=== PATIENT | female | born 1955 | race Caucasian/White ===

== ENCOUNTER 2018-01-27 12:15 | Inpatient (IN) | payer BC ==
[~2018-01-27] VITALS: Ht 149.9 cm; Wt 44.0 kg
[2018-01-27] VITALS (15 sets, daily range): BP systolic 126–153; BP diastolic 66–88
[2018-01-27] MEDS ORDERED: DEXAMETHASONE 4 MG/ML SDV (DECADRON) IV NR (12:30)
[2018-01-27 13:12] LABS: BASOPHILS % (AUTO) 0 % (0-10); EOSINOPHILS % (AUTO) 0 % (0-10); HEMATOCRIT 34 % (35-52); HEMOGLOBIN 11.8 G/DL (11.5-16.0); LYMPHOCYTES # (AUTO) 1.9 X 10^3 (1.0-4.0); LYMPHOCYTES % (AUTO) 16 % (12-44); MEAN CORPUSCULAR HEMOGLOBIN 31 PG (25-34); MEAN CORPUSCULAR HGB CONC 34 G/DL (32-36); MEAN CORPUSCULAR VOLUME 90 FL (80-99); MEAN PLATELET VOLUME 9.7 FL (7.4-10.4); MONOCYTES # (AUTO) 0.9 X 10^3 (0.0-1.0); MONOCYTES % (AUTO) 7 % (0-12); NEUTROPHILS % (AUTO) 76 % (42-75); PLATELET COUNT 465 10^3/uL (130-400); RED BLOOD COUNT 3.83 10^6/uL (4.35-5.85); WHITE BLOOD COUNT 11.7 10^3/uL (4.3-11.0)
[2018-01-27] MEDS ORDERED: CATHETER FLUSH 10 ML SYR IV PRN ×2 (13:15→13:45)
[2018-01-27 13:23] LABS: INR 1.1 (0.8-1.4); PROTHROMBIN TIME PATIENT 13.9 SEC (12.2-14.7)
[2018-01-27] MEDS: NS IV 1000 ML 1,000 ML IV SCH ×2 (13:26→23:10)
[2018-01-27] MEDS ORDERED: ONDANSETRON 4 MG/2 ML (SDV) Z0FRAN IVP PRN (13:30)
[2018-01-27 13:32] LABS: ALANINE AMINOTRANSFERASE 11 U/L (0-55); ALKALINE PHOSPHATASE 74 U/L (40-136); BILIRUBIN,TOTAL 0.5 MG/DL (0.1-1.0); BUN/CREATININE RATIO 12; CALCIUM 9.7 MG/DL (8.5-10.1); CARBON DIOXIDE 29 MMOL/L (21-32); CHLORIDE 88 MMOL/L (98-107); CREATININE SERUM 0.49 MG/DL (0.60-1.30); GFR ESTIMATED > 60; GLUCOSE 96 MG/DL (70-105); POTASSIUM 2.7 MMOL/L (3.6-5.0); SODIUM 133 MMOL/L (135-145); TOTAL PROTEIN 6.6 GM/DL (6.4-8.2)
--- NOTE | 2018-01-27 13:44 | Diagnostic Imaging Report ---
INDICATION: Shortness of breath. Time of exam 1:18 PM No prior studies are available for comparison. The heart size is normal. There is a mass in the right upper lobe measuring approximately 4 cm in size. There is some lucency along the upper portion of the mass suggestive of cavitation. No other abnormal parenchymal opacities are seen. No effusion or pneumothorax is seen. IMPRESSION: Cavitary mass right upper lobe. Further catheterization with CT of the chest could be performed. Dictated by: Dictated on workstation # [id number]
--- NOTE | 2018-01-27 13:45 | History & Physical-Hospitalist ---
History of Present Illness HPI/Chief Complaint Pt is a a 62yoCF who presented as a direct admission from Dr Benitez's office. She is very tired and offers very little history so all history is obtained from sister at bedside and Dr Benitez. She reportedly fell on Friday and was brought to [facility] and admitted for pneumonia. CT Chest on 01/24 showed a large cavitating mass concerning for lung cancer with large mediastinal lymphadenopathy. She had some left sided weakness as well. She was discharged home on 01/25 with follow up with Dr Benitez today. She had a CT Head and CT Abdomen and pelvis done today and was found to have large 4x5cm frontal mass with cerebral edema. She was admitted here for radiation oncology evaluation and pulmonology consultation. Her only complaint is that she has a headache. Her sister states that prior to 01/23 they were unaware she was so weak but they did not actively check on her. They had noticed that she has had almost no appetite and has been losing weight over the past few weeks. Her sister believes she has lost 20lbs. Source: family Exam Limitations: clinical condition Date Seen 01/27/18 Time Seen by a Provider: 13:29 Attending Physician Marley Fitzpatrick MD PCP Referring Physician Date of Admission Jan 27, 2018 at 12:15 pm Home Medications & Allergies Home Medications Reviewed patient Home Medication Reconciliation performed by pharmacy medication reconciliations gameroom technician and/or nursing. Patients Allergies have been reviewed. Allergies Allergies Coded Allergies No Allergy Information Available (Nxdvqxwkkl01/23/18) Past Mgrujtq-Iyqmsn-Mmzsmm Hx Past Med/Social Hx: Reviewed Nursing Past Med/Soc Hx Patient Social History Alcohol Use: Past History (quit 3-4 months ago) Recreational Drug Use: Yes Drug of Choice: THC Smoking Status: Never a Smoker Recent Foreign Travel: No Contact w/other who traveled: No Family History Reviewed Nursing Family Hx Cancer (Dad- lung cancer) Review of Systems ROS-Unable to Obtain: due to clinical status Constitutional: see HPI Physical Exam Physical Exam Vital Signs Vital Signs - First Documented 01/27/18 01/27/18 01/29/18 12:30 15:57 09:15 Temp 98.8 Pulse 76 Resp 11 B/P (MAP) 146/75 (98) Pulse Ox 96 O2 Delivery Room Air O2 Flow Rate 3.00 FiO2 21 Capillary Refill : Height, Weight, BMI Height: 4'11.00" Weight: 86lbs. 6.0oz. 39.540346os; 17.5 BMI Method: General Appearance: Chronically ill, Cachetic HEENT: PERRL/EOMI; No Scleral Icterus (L), No Scleral Icterus (R) Neck: Normal Inspection; No Thyromegaly Respiratory: Lungs Clear, No Accessory Muscle Use, No Respiratory Distress Cardiovascular: Regular Rate, Rhythm, No JVD, No Murmur Gastrointestinal: Normal Bowel Sounds, Non Tender, Soft Extremity: No Calf Tenderness, No Pedal Edema Neurologic/Psychiatric: Alert, Motor Weakness (left upper and lower extremity- 0/5 strength, states feels sensation but no withdrawal to painful stimuli), Other (answers some questions appropriately) Skin: Normal Color, Warm/Dry Results Results/Procedures Labs Laboratory Tests 01/29/18 03:30 01/30/18 05:15 Patient resulted labs reviewed. Imaging: Reviewed Imaging Films, Reviewed Imaging Report Assessment/Plan Admission Diagnosis Cerebral Edema from metastatic lesion Admission Status: Inpatient Order (span 2 midnights) Reason for Inpatient Admission: Need IV decadron, Radiation oncology evaluation, and furhter stabilization Diagnosis/Problems Diagnosis/Problems (1) Cerebral edema Status: Acute Assessment & Plan: Due to 4x5 cm mass Images from [place] to be uploaded here Rad/Onc consulted, appreciate recs Decadron started neuro checks (2) Lung mass Status: Acute Assessment & Plan: Lung mass on Ct with lymphadenopathy Reviewed films with Dr Gates and amenable to biopsy Will keep NPO after midnight INR normal Not on blood thinners (3) Left-sided weakness Assessment & Plan: Due to mass Decadron started MARLEY FITZPATRICK MD Jan 27, 2018 13:45
[2018-01-27] MEDS: APAP 325 MG/10.15 ML LIQ (TYLENOL) UDC PO PRN (14:08)
[2018-01-27] MEDS ORDERED: NAPR220T66 PO (14:11)
--- NOTE | 2018-01-27 15:20 | Pulmonary Consultation ---
History of Present Illness History of Present Illness Date of Consultation 01/27/18 15:17 Time Seen by Provider: 05:27 Date of Admission History of Present Illness 62yo patient dirctly admitted from [facility] after CT of chest found a cavitating mass and CT of head shows large 4x5 cm frontal mass. I am consulted for pulmonary management and bronchoscopy with EBUS. CT scan shows large cavitating mass and large MLA. Oncology has also been consulted. PT has had LUIS, decreased appetitie, progressive fatigue and lethargy. No prior cancer history. Allergies and Home Medications Allergies Coded Allergies: No Allergy Information Available (Unverified , 01/27/18) Home Medications Naproxen Sodium 220 Mg Tablet, 440 MG PO BID PRN for PAIN-MILD, (Reported) Past Srqeykb-Xfggwl-Dztvhf Hx Past Med/Social Hx: Reviewed Nursing Past Med/Soc Hx Patient Social History Alcohol Use: Past History (quit 3-4 months ago) Recreational Drug Use: Yes Drug of Choice: THC Smoking Status: Never a Smoker Recent Foreign Travel: No Contact w/Someone Who Travel: No Family Medical History Reviewed Nursing Family Hx Cancer (Dad- lung cancer) Review of Systems Time Seen by Provider: 13:16 Sepsis Event Evaluation Height, Weight, BMI Height: 4'11.00" Weight: 86lbs. 6.0oz. 39.800160fs; 17.5 BMI Method: Exam Exam Vital Signs Date Time Temp Pulse Resp B/P (MAP) Pulse Ox O2 Delivery O2 Flow Rate FiO2 01/27/18 12:45 74 18 137/70 (92) 95 Room Air 01/27/18 12:30 98.8 76 11 146/75 (98) 96 Room Air Height & Weight Height: 4'11.00" Weight: 86lbs. 6.0oz. 39.375839ue; 17.5 BMI Method: General Appearance: Chronically ill, Cachetic HEENT: PERRL/EOMI; No Scleral Icterus (L), No Scleral Icterus (R) Neck: Normal Inspection; No Thyromegaly Respiratory: Lungs Clear, No Accessory Muscle Use, No Respiratory Distress Cardiovascular: Regular Rate, Rhythm, No JVD, No Murmur Extremity: No Calf Tenderness, No Pedal Edema, Other (left sided heimpralysis ) Neurologic/Psychiatric: Alert, Motor Weakness (left upper and lower extremity- 0/5 strength, states feels sensation but no withdrawal to painful stimuli), Other (answers some questions appropriately) Skin: Normal Color, Warm/Dry Results Lab Laboratory Tests 01/27/18 12:53 Assessment/Plan Assessment/Plan large lung mass -Will do bronchoscopy with EBUS for tissue dx this morning Brain mass with left sided weakness -Decadron started Left sided hemiparalysis Hypokalemia -replace LUIS -Pain control AKILA ROCHE DO Jan 27, 2018 15:20
[2018-01-27] MEDS: inSUlin ASPART (NovoLOG) 1 UNIT/0.01 ML (CHARGE PER UNIT) SC SCH ×2 (16:30→20:01)
[2018-01-27] MEDS: DEXAMETHASONE 4 MG/ML SDV (DECADRON) IV SCH (19:07)
[2018-01-27] MEDS ORDERED: POTASSIUM CL 10MEQ/50ML IVPB 250 ML IV ONE (19:54)
[2018-01-27] MEDS ORDERED: POTASSIUM CL 10MEQ/50ML IVPB 50 ML IV ONE (20:00)
[2018-01-27] MEDS: POTASSIUM CL 10MEQ/50ML IVPB 50 ML IV SCH ×3 (21:14→23:10)
[2018-01-28] VITALS (22 sets, daily range): BP systolic 106–153; BP diastolic 64–106
[2018-01-28] MEDS: POTASSIUM CL 10MEQ/50ML IVPB 50 ML IV SCH (00:11)
[2018-01-28] MEDS: APAP 325 MG/10.15 ML LIQ (TYLENOL) UDC PO PRN (00:17)
[2018-01-28] MEDS: DEXAMETHASONE 4 MG/ML SDV (DECADRON) IV SCH ×4 (00:17→17:48)
[2018-01-28 03:54] LABS: BASOPHILS % (AUTO) 0 % (0-10); EOSINOPHILS % (AUTO) 0 % (0-10); HEMATOCRIT 34 % (35-52); HEMOGLOBIN 11.6 G/DL (11.5-16.0); LYMPHOCYTES # (AUTO) 1.5 X 10^3 (1.0-4.0); LYMPHOCYTES % (AUTO) 12 % (12-44); MEAN CORPUSCULAR HEMOGLOBIN 31 PG (25-34); MEAN CORPUSCULAR HGB CONC 34 G/DL (32-36); MEAN CORPUSCULAR VOLUME 89 FL (80-99); MEAN PLATELET VOLUME 10.1 FL (7.4-10.4); MONOCYTES # (AUTO) 0.2 X 10^3 (0.0-1.0); MONOCYTES % (AUTO) 1 % (0-12); NEUTROPHILS # (AUTO) 10.5 X 10^3 (1.8-7.8); NEUTROPHILS % (AUTO) 87 % (42-75); PLATELET COUNT 487 10^3/uL (130-400); RED BLOOD COUNT 3.78 10^6/uL (4.35-5.85); RED CELL DISTRIBUTION WIDTH 12.3 % (10.0-14.5); WHITE BLOOD COUNT 12.1 10^3/uL (4.3-11.0)
[2018-01-28 04:07] LABS: BUN/CREATININE RATIO 13; CALCIUM 9.2 MG/DL (8.5-10.1); CARBON DIOXIDE 24 MMOL/L (21-32); CHLORIDE 95 MMOL/L (98-107); CREATININE SERUM 0.48 MG/DL (0.60-1.30); GFR ESTIMATED > 60; GLUCOSE 132 MG/DL (70-105); MAGNESIUM 1.9 MG/DL (1.8-2.4); PHOSPHORUS 2.3 MG/DL (2.3-4.7); SODIUM 133 MMOL/L (135-145)
[2018-01-28] MEDS: inSUlin ASPART (NovoLOG) 1 UNIT/0.01 ML (CHARGE PER UNIT) SC SCH ×4 (04:16→20:48)
[2018-01-28] MEDS: morphine INJ 4 MG/ML 1 ML (VIAL/SYRINGE) IVP PRN ×2 (05:31→20:42)
--- NOTE | 2018-01-28 05:44 | Pulmonary Progress Note ---
Subjective Time Seen by a Provider: 06:16 Subjective/Events-last exam PT is lethargic. family at bedside. Sepsis Event Evaluation Height, Weight, BMI Height: 4'11.00" Weight: 87lbs. 9.0oz. 39.976631po; 17.5 BMI Method: Exam Exam Vital Signs Date Time Temp Pulse Resp B/P (MAP) Pulse Ox O2 Delivery O2 Flow Rate FiO2 01/28/18 04:00 98.5 01/28/18 04:00 94 Room Air 01/28/18 03:00 77 21 142/74 (96) 95 Room Air 01/28/18 02:00 80 15 140/80 (100) 95 Room Air 01/28/18 01:34 84 01/28/18 01:00 86 19 144/72 (96) 95 Room Air 01/28/18 00:00 90 13 129/78 (95) 94 Room Air 01/28/18 00:00 98.3 01/28/18 00:00 94 Room Air 01/27/18 23:00 94 14 141/78 (99) 94 Room Air 01/27/18 22:00 98 26 144/75 (98) 94 Room Air 01/27/18 21:00 86 12 138/81 (100) 94 Room Air 01/27/18 20:00 84 18 126/66 (86) 95 Room Air 01/27/18 20:00 94 Room Air 01/27/18 20:00 99.5 01/27/18 19:26 80 01/27/18 19:00 86 19 148/88 (108) 94 Room Air 01/27/18 18:00 77 11 141/79 (99) 94 Room Air 01/27/18 17:00 82 19 140/68 (92) 95 Room Air 01/27/18 16:30 94 Room Air 01/27/18 16:00 82 18 139/72 (94) 93 Room Air 01/27/18 15:57 74 95 21 01/27/18 15:00 83 16 145/85 (105) 93 Room Air 01/27/18 14:00 77 19 153/84 (107) 96 Room Air 01/27/18 13:15 75 17 148/80 (102) 97 Room Air 01/27/18 13:00 Room Air 01/27/18 13:00 71 13 138/78 (98) 95 Room Air 01/27/18 13:00 71 01/27/18 12:45 74 18 137/70 (92) 95 Room Air 01/27/18 12:33 78 01/27/18 12:30 98.8 76 11 146/75 (98) 96 Room Air I & O 01/28/18 07:00 Intake Total 1750 ml Output Total 1100 ml Balance 650 ml Height & Weight Height: 4'11.00" Weight: 87lbs. 9.0oz. 39.908668yx; 17.5 BMI Method: General Appearance: Chronically ill, Cachetic HEENT: PERRL/EOMI; No Scleral Icterus (L), No Scleral Icterus (R) Neck: Normal Inspection; No Thyromegaly Respiratory: Lungs Clear, No Accessory Muscle Use, No Respiratory Distress Cardiovascular: Regular Rate, Rhythm, No JVD, No Murmur Extremity: No Calf Tenderness, No Pedal Edema, Other (left sided heimpralysis ) Neurologic/Psychiatric: Alert, Motor Weakness (left upper and lower extremity- 0/5 strength, states feels sensation but no withdrawal to painful stimuli), Other (answers some questions appropriately) Skin: Normal Color, Warm/Dry Results Lab Laboratory Tests 01/27/18 12:53 01/28/18 02:55 Assessment/Plan Assessment/Plan large lung mass -Will do bronchoscopy with EBUS for tissue dx this morning Brain mass with left sided weakness -Decadron started Left sided hemiparalysis Hypokalemia -replace LUIS -Pain control AKILA ROCHE DO Jan 28, 2018 05:44
[2018-01-28] MEDS ORDERED: MAGNESIUM 1 GM/100 ML IVPB 100 ML IV SCH (06:00)
[2018-01-28] MEDS ORDERED: POTASSIUM CL 10MEQ/50ML IVPB 50 ML IV SCH (06:00)
[2018-01-28] MEDS ORDERED: KCL 20 MEQ TAB (K-DUR) PO SCH (06:00)
--- NOTE | 2018-01-28 06:32 | Progress Note-Pre Operative ---
Pre-Operative Progress Note H&P Reviewed The H&P was reviewed, patient examined and no changes noted. Date Seen by Provider: Jan 28, 2018 Time Seen by Provider: 06:32 Date H&P Reviewed: Jan 28, 2018 Time H&P Reviewed: 06:32 Pre-Operative Diagnosis: lung mass AKILA ROCHE DO Jan 28, 2018 06:32
[2018-01-28] MEDS ORDERED: proPOfol 200 MG/20 ML (DIPRIVAN) VIAL IV ONE (07:01)
[2018-01-28] MEDS ORDERED: MIDAZOLAM 2 MG/2 ML (VERSED) VIAL ONE (07:02)
[2018-01-28] MEDS ORDERED: DEXAMETHASONE 10 MG/ML (DECADRON) 1 ML VIAL ONE (07:02)
[2018-01-28] MEDS ORDERED: LIDOCAINE PF 2% 5 ML (XYLOCAINE) VIAL ONE (07:02)
[2018-01-28] MEDS ORDERED: fentaNYL INJECTION 100 MCG/2 ML AMP ONE (07:02)
[2018-01-28] MEDS ORDERED: ONDANSETRON 4 MG/2 ML (SDV) Z0FRAN ONE (07:03)
[2018-01-28] MEDS ORDERED: ROCURONIUM 10 MG/ML 5 ML SYRINGE IV ONE (07:03)
[2018-01-28] MEDS ORDERED: LIDOCAINE JELLY 2% 6 ML SYRINGE ONE (07:16)
[2018-01-28] MEDS ORDERED: LACTATED RINGERS 1,000 ML IV ONE ×2 (07:24→09:15)
[2018-01-28] MEDS ORDERED: PHENYLEPHRINE 100 MCG/ML 10 ML (ANESTHESIA) SYR ONE (07:35)
--- NOTE | 2018-01-28 08:06 | Diagnostic Imaging Report ---
INDICATION: Dyspnea. COMPARISON: 01/27/2018. FINDINGS: Cavitary lesion again noted in the right upper lung. This has not changed significantly in size or shape. Left lung remains well-aerated and clear. Heart is not enlarged. There is no pulmonary edema. No pneumothorax or pleural effusion. No bony lesion. IMPRESSION: Cavitary lesion again noted right upper lung without significant change since previous exam. With known intracranial mass this likely represents primary or metastatic lesion. Dictated by: Dictated on workstation # [id number]
[2018-01-28] MEDS ORDERED: GLYCOPYRROLATE 0.2 MG/ML (ROBINUL) 2 ML VIAL ONE (08:23)
[2018-01-28] MEDS ORDERED: NEOSTIGMINE 1 MG/ML 5 ML SYRINGE ONE (08:23)
--- NOTE | 2018-01-28 09:20 | Anesthesia-General Post-Op ---
General Patient Condition Mental Status/LOC: Same as Preop Cardiovascular: Satisfactory Nausea/Vomiting: Absent Respiratory: Satisfactory Pain: Controlled Complications: Absent Post Op Complications Complications None Follow Up Care/Instructions Patient Instructions None needed. Anesthesia/Patient Condition Patient Condition Patient was seen after the procedure and she was doing well, no complaints, stable vital signs, no apparent adverse anesthesia problems. STEPHENIE DAMICO DO Jan 28, 2018 09:19
[2018-01-28] MEDS ORDERED: morphine INJ 10 MG/ML 1ML (SYR OR VIAL) IVP ONE (09:30)
[2018-01-28] MEDS ORDERED: ONDANSETRON 4 MG/2 ML (SDV) Z0FRAN IVP PRN (09:30)
--- NOTE | 2018-01-28 09:37 | Diagnostic Imaging Report ---
INDICATION: Post bronchoscopy evaluation Portable chest 9:09 AM There is an infiltrate present in the right upper lobe. There is no pneumothorax. Left lung is clear. IMPRESSION: Increasing infiltrate right upper lobe likely due to alveolar hemorrhage following bronchoscopy. Dictated by: Dictated on workstation # [id number]
[2018-01-28] MEDS: NS IV 1000 ML 1,000 ML IV SCH ×2 (09:54→21:57)
--- NOTE | 2018-01-28 10:17 | Pulmonary Procedures ---
Pulmonary Procedures Date of Procedure Date of Service: Jan 28, 2018 Bronch Bronchoscopy with fluoroscopy, washing, BAL, transbronchial brushes of RUL. EBUS with transbronchial needle aspiration of stations 7, 10R, 4R, and 4L lymph nodes under US guidance. Preop DX: mediastinal lymphadenopathy, lung mass PostOP DX: same Complications: None Pt was sedated per anesthesia. Bronchoscopy was advanced through the ET tube and an anatomical undertaken down to the segmental bronchi bilaterally. No endobronchial lesions noted. Bronchoscopy with fluoroscopy, washing, BAL, transbronchial brushes of RUL. EBUS with transbronchial needle aspiration of stations 7, 10R, 4R, and 4L lymph nodes under US guidance. Pt tolerated procedure well. No complications noted. AKILA ROCHE DO Jan 28, 2018 10:17
--- NOTE | 2018-01-28 10:25 | Diagnostic Imaging Report ---
Indication: Fluoroscopy for bronchoscopy. Fluoroscopy was performed during bronchoscopy. 38 seconds of fluoroscopic time was utilized. Impression: Fluoroscopy during bronchoscopy. Dictated by: Dictated on workstation # [id number]
[2018-01-28 11:14] LABS: BODY FLUID APPEARENCE MOD CLDY; BODY FLUID COLOR COLORLESS; BODY FLUID SOURCE BRONCH LAVAGE; LYMPHOCYTES,BODY FLUID 9 %
[2018-01-28 11:15] LABS: BF OTHER CELLS 83 %
[2018-01-28] MEDS ORDERED: LIDOCAINE PF 2% 5 ML (XYLOCAINE) VIAL INJ ONE (12:27)
[2018-01-28] MEDS ORDERED: LIDOCAINE PF 1% 2 ML AMP IJ ONE (12:29)
--- NOTE | 2018-01-28 13:02 | CONSULTATION REPORT ---
DATE OF SERVICE: 01/28/2018 REFERRING PHYSICIAN: Elli Fitzpatrick MD PRIMARY PHYSICIAN: Romeo Benitez DO The patient is admitted to ICU bed 7. IMPRESSION: 1. A 62-year-old female admitted with mental status changes and left-sided weakness. 2. CT of the head with a large 5 x 4 cm mass in the right frontal region with significant edema as well as a smaller lesion in the left parietal lobe. 3. CT of the chest showing a cavitary lesion in the right upper lobe measuring 5 cm in diameter. 4. Status post bronchoscopy and biopsy earlier today. 5. No history of tobacco use, but the patient has smoked marijuana for 30 to 40 years on a regular basis. RECOMMENDATIONS: 1. Continue dexamethasone 4 mg IV or p.o. every 6 hours to reduce cerebral edema as you are doing. 2. Agree with radiation oncology consult for palliative radiation therapy. 3. I will await the pathology report from the bronchoscopy and biopsy and the definitive diagnosis before recommending systemic therapy. 4. The patient's daughter who has a legal and medical power of commercial real estate attorney is on her way from [place] and will be in [place] later today. BRIEF HISTORY: The patient is a 62-year-old female who apparently was doing well until she was found unresponsive and on the floor of her house last Friday. She was taken to [facility] and had CT scans done, which showed the right lung mass and as well as the brain mass. She was sent as a direct admit from her primary physician to [facility] for further management. Medical oncology consultation was obtained for further recommendations. The patient was unable to provide any history and it was obtained from her sister who lives in [place] and has been in close contact with the patient. According to the patient's sister, she was doing well and had several dental implants done approximately 2 weeks ago, she complained of pain following this as well as headaches. She had no other complaints. PAST MEDICAL HISTORY: Essentially unremarkable with no major medical problems. PAST SURGICAL HISTORY: Include a hysterectomy in the distant past. SOCIAL HISTORY: The patient is and has been living in [place] by herself since the last 10 to 12 years. 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 She has 3 children, 2 daughters and a son who live in [place], all of whom are adults. One of her daughters have legal and medical power of commercial real estate attorney for the patient. Her family gives a history that the patient has never smoked tobacco, but she used marijuana regularly since the last 30 to 40 years. She also has an extensive alcohol use since the last 10+ years, but quit 6 months ago. DETAILED FAMILY HISTORY: Not obtained today. PHYSICAL EXAMINATION: GENERAL: Today showed an elderly female, awake, but not answering questions other than occasional one word answers. She is not completely oriented. Does not appear in any acute distress. HEENT: Normocephalic, extraocular muscles intact, conjunctivae pink. Oral mucosa moist without lesions. NECK: Supple, with no JVD. No cervical, supraclavicular or axillary lymphadenopathy palpable. CHEST: Symmetrical. LUNGS: Slightly diminished breath sounds bilaterally without wheezes or rales. CARDIOVASCULAR: Regular rate and rhythm. No murmurs or gallops. ABDOMEN: Soft, nontender with no hepatosplenomegaly or other masses palpable. EXTREMITIES: Showed no edema. NEUROLOGIC: Full neurological examination could not be done as the patient would not follow instructions. She is moving all 4 extremities with a less control on the left side. LABORATORY DATA: I reviewed her lab work done today. CBC showed WBC 12.1, hemoglobin 11.6, platelet count 487,000 with neutrophil count 10.5 and lymphocyte count 1.5. BMP done today showed sodium level of 133 with the rest of the electrolytes relatively normal. BUN was 6 and creatinine 0.48 with GFR more than 60 mL per minute. CMP done yesterday showed normal liver function studies. Protime was 13.9 and INR 1.1 at the time of admission. I reviewed the outside images from [place] and the CT scan of the chest showed a 5 cm in diameter cavitating lesion in the right upper lobe with mediastinal lymphadenopathy. CT scan of the head showed a large 5 x 4 cm enhancing lesion in the right frontal lobe with significant surrounding edema. There is a smaller lesion in the left parietal area with no significant edema. The patient completed a bronchoscopy with washings, brushings and biopsy today with the pathology report pending. Thank you for allowing me to participate in this patient's care. I will follow the patient with you and make appropriate recommendations. Job ID: [id number] DocumentID: [id number] Dictated Date: 01/28/2018 11:34:17 Chemical Processing Technician Date: 01/28/2018 13:01:20 Dictated By: MD OLIVIA BURGER
--- NOTE | 2018-01-28 14:51 | Occ Therapy Progress Note ---
Therapy Progress Note Order received for OT eval and treat. Chart review completed. Spoke with RN regarding pt status and plan of care. RN states pt is not appropriate for therapy at this time. Will d/c OT and await further OT orders when appropriate. RENEE PATHAK OT Jan 28, 2018 14:51
--- NOTE | 2018-01-28 15:22 | Progress Note-Hospitalist ---
Subjective HPI/CC On Admission Date Seen by Provider: Jan 28, 2018 Time Seen by Provider: 15:18 Pt is a a 62yoCF who presented as a direct admission from Dr Benitez's office. She is very tired and offers very little history so all history is obtained from sister at bedside and Dr Benitez. She reportedly fell on Friday and was brought to [facility] and admitted for pneumonia. CT Chest on 01/24 showed a large cavitating mass concerning for lung cancer with large mediastinal lymphadenopathy. She had some left sided weakness as well. She was discharged home on 01/25 with follow up with Dr Benitez today. She had a CT Head and CT Abdomen and pelvis done today and was found to have large 4x5cm frontal mass with cerebral edema. She was admitted here for radiation oncology evaluation and pulmonology consultation. Her only complaint is that she has a headache. Her sister states that prior to 01/23 they were unaware she was so weak but they did not actively check on her. They had noticed that she has had almost no appetite and has been losing weight over the past few weeks. Her sister believes she has lost 20lbs. Subjective/Events-last exam Pt remains somnolent. She did open her eyes but did not answer any questions during my exam. Underwent bronch this AM. Objective Exam Vital Signs Vital Signs Date Time Temp Pulse Resp B/P (MAP) Pulse Ox O2 Delivery O2 Flow Rate FiO2 01/28/18 12:00 94 Room Air 01/28/18 11:00 67 11 130/73 (92) 01/28/18 04:00 98.5 01/27/18 15:57 21 Capillary Refill : General Appearance: Chronically ill, Cachetic Respiratory: Lungs Clear, No Respiratory Distress Cardiovascular: Regular Rate, Rhythm, No Murmur Gastrointestinal: Normal Bowel Sounds, Non Tender, Soft Neurologic/Psychiatric: Alert, Motor Weakness Results/Procedures Lab Laboratory Tests 01/28/18 02:55 Patient resulted labs reviewed. Imaging: Reviewed Imaging Films, Reviewed Imaging Report Assessment/Plan Assessment and Plan Assess & Plan/Chief Complaint Cerebral Edema, brain mets Diagnosis/Problems Diagnosis/Problems (1) Cerebral edema Status: Acute Assessment & Plan: Due to 4x5 cm mass Images uploaded for Pulm and rad/onc review Rad/Onc consulted, appreciate recs Cont Decadron neuro checks (2) Lung mass Status: Acute Assessment & Plan: Lung mass on CT with lymphadenopathy Underwent EBUS this AM Oncology consulted, appreciate recs (3) Left-sided weakness Assessment & Plan: Due to mass Decadron started Clinical Quality Measures DVT/VTE Risk/Contraindication: Risk Factor Score Per Nursin RFS Level Per Nursing on Admit: 4+=Very High MARLEY BURT MD Jan 28, 2018 3:22 pm
[2018-01-29] VITALS (9 sets, daily range): BP systolic 139–157; BP diastolic 68–96
[2018-01-29] MEDS: DEXAMETHASONE 4 MG/ML SDV (DECADRON) IV SCH ×4 (00:18→17:13)
[2018-01-29 03:57] LABS: BUN/CREATININE RATIO 13; CALCIUM 8.6 MG/DL (8.5-10.1); CARBON DIOXIDE 23 MMOL/L (21-32); CHLORIDE 96 MMOL/L (98-107); CREATININE SERUM 0.46 MG/DL (0.60-1.30); GFR ESTIMATED > 60; GLUCOSE 132 MG/DL (70-105); MAGNESIUM 1.6 MG/DL (1.8-2.4); PHOSPHORUS 2.4 MG/DL (2.3-4.7); POTASSIUM 3.4 MMOL/L (3.6-5.0); SODIUM 132 MMOL/L (135-145)
[2018-01-29] MEDS: NS IV 1000 ML 1,000 ML IV SCH ×3 (05:59→17:13)
[2018-01-29] MEDS: inSUlin ASPART (NovoLOG) 1 UNIT/0.01 ML (CHARGE PER UNIT) SC SCH ×4 (06:01→21:37)
--- NOTE | 2018-01-29 06:22 | Pulmonary Progress Note ---
Subjective Time Seen by a Provider: 08:05 Subjective/Events-last exam No complications noted. Sepsis Event Evaluation Height, Weight, BMI Height: 4'11.00" Weight: 87lbs. 9.0oz. 39.679598gw; 17.5 BMI Method: Exam Exam Vital Signs Date Time Temp Pulse Resp B/P (MAP) Pulse Ox O2 Delivery O2 Flow Rate FiO2 01/29/18 05:00 76 11 153/72 (99) 93 Room Air 01/29/18 04:00 73 18 154/70 (98) 94 Room Air 01/29/18 04:00 98.9 01/29/18 04:00 94 Room Air 01/29/18 03:00 80 16 146/71 (96) 92 Room Air 01/29/18 02:00 71 19 94 Room Air 01/29/18 01:00 60 01/29/18 01:00 60 10 146/68 (94) 92 Room Air 01/29/18 00:00 94 Room Air 01/29/18 00:00 75 14 157/96 (116) 92 Room Air 01/29/18 00:00 98.7 01/28/18 23:00 75 9 153/86 (108) 93 Room Air 01/28/18 22:00 75 15 149/79 (102) 91 Room Air 01/28/18 21:00 75 22 123/64 (83) 90 Room Air 01/28/18 20:00 94 Room Air 01/28/18 20:00 98.3 01/28/18 20:00 93 16 134/74 (94) 93 Room Air 01/28/18 19:00 93 9 134/72 (92) 91 Room Air 01/28/18 19:00 98 01/28/18 18:00 93 12 132/106 (115) 94 Room Air 01/28/18 17:39 98.4 89 18 122/80 (94) 95 Room Air 01/28/18 16:00 94 Room Air 01/28/18 16:00 95 18 114/76 (89) 95 Room Air 01/28/18 15:00 77 15 132/78 (96) 95 Room Air 01/28/18 13:00 68 11 137/73 (94) 95 Room Air 01/28/18 13:00 72 01/28/18 12:00 94 Room Air 01/28/18 12:00 65 11 145/75 (98) 93 Room Air 01/28/18 11:00 67 11 130/73 (92) 93 Room Air 01/28/18 10:16 94 Room Air 01/28/18 10:00 72 13 145/81 (102) 95 Room Air 01/28/18 08:00 94 Room Air 01/28/18 07:41 16 01/28/18 07:00 74 01/28/18 07:00 71 13 142/69 (93) 95 Room Air 01/28/18 06:20 96 Room Air I & O 01/29/18 07:00 Intake Total 1720 ml Output Total 2525 ml Balance -805 ml Height & Weight Height: 4'11.00" Weight: 87lbs. 9.0oz. 39.469992bc; 17.5 BMI Method: General Appearance: Chronically ill, Cachetic HEENT: PERRL/EOMI; No Scleral Icterus (L), No Scleral Icterus (R) Neck: Normal Inspection; No Thyromegaly Respiratory: Lungs Clear, No Accessory Muscle Use, No Respiratory Distress Cardiovascular: Regular Rate, Rhythm, No JVD, No Murmur Extremity: No Calf Tenderness, No Pedal Edema, Other (left sided heimpralysis ) Neurologic/Psychiatric: Alert, Motor Weakness (left upper and lower extremity- 0/5 strength, states feels sensation but no withdrawal to painful stimuli), Other (answers some questions appropriately) Skin: Normal Color, Warm/Dry Results Lab Laboratory Tests 01/27/18 12:53 01/28/18 02:55 01/29/18 03:30 Assessment/Plan Assessment/Plan large lung mass s/p bronchoscopy with EBUS -Oncology and radiation oncology consulted Brain mass with left sided weakness -Decadron Left sided hemiparalysis Hypokalemia -replace LUIS -Pain control AKILA ROCHE DO Jan 29, 2018 06:22
[2018-01-29 06:32] LABS: BASOPHILS % (AUTO) 0 % (0-10); EOSINOPHILS % (AUTO) 0 % (0-10); HEMATOCRIT 33 % (35-52); HEMOGLOBIN 11.2 G/DL (11.5-16.0); LYMPHOCYTES # (AUTO) 1.6 X 10^3 (1.0-4.0); LYMPHOCYTES % (AUTO) 8 % (12-44); MEAN CORPUSCULAR HEMOGLOBIN 31 PG (25-34); MEAN CORPUSCULAR HGB CONC 34 G/DL (32-36); MEAN CORPUSCULAR VOLUME 90 FL (80-99); MEAN PLATELET VOLUME 9.7 FL (7.4-10.4); MONOCYTES # (AUTO) 0.6 X 10^3 (0.0-1.0); MONOCYTES % (AUTO) 3 % (0-12); NEUTROPHILS # (AUTO) 18.1 X 10^3 (1.8-7.8); NEUTROPHILS % (AUTO) 89 % (42-75); PLATELET COUNT 436 10^3/uL (130-400); RED BLOOD COUNT 3.63 10^6/uL (4.35-5.85); RED CELL DISTRIBUTION WIDTH 12.2 % (10.0-14.5); WHITE BLOOD COUNT 20.4 10^3/uL (4.3-11.0)
[2018-01-29 06:33] LABS: LYMPHOCYTES % (MANUAL) 11 %; MONOCYTES % (MANUAL) 2 %; NEUTROPHILS % (MANUAL) 87 %
--- NOTE | 2018-01-29 07:22 | Diagnostic Imaging Report ---
INDICATION: Shortness of air. COMPARISON: 01/28/2018. FINDINGS: Single frontal radiographic view of the chest was obtained and demonstrates significant interval improved aeration when compared to one day prior. There is, however, persistent mass type opacity within the right mid and upper lung field measuring 4.7 x 3.3 cm. Note is made of central lucency. Findings may be on the basis of interval resolution of atelectasis or hemorrhage in the right upper lobe. Left lung remains relatively clear. No large effusion or pneumothorax is seen on either side. Cardiac silhouette and pulmonary vasculature are within normal limits. Bony structures show no acute abnormalities. IMPRESSION: 1. Significant improved aeration of the right upper lobe. 2. Persistent right-sided cavitary mass. Dictated by: Dictated on workstation # [id number]
--- NOTE | 2018-01-29 07:35 | Progress Note-Hospitalist ---
Subjective HPI/CC On Admission Date Seen by Provider: Jan 29, 2018 Time Seen by Provider: 07:32 Pt is a a 62yoCF who presented as a direct admission from Dr Benitez's office. She is very tired and offers very little history so all history is obtained from sister at bedside and Dr Benitez. She reportedly fell on Friday and was brought to [facility] and admitted for pneumonia. CT Chest on 01/24 showed a large cavitating mass concerning for lung cancer with large mediastinal lymphadenopathy. She had some left sided weakness as well. She was discharged home on 01/25 with follow up with Dr Benitez today. She had a CT Head and CT Abdomen and pelvis done today and was found to have large 4x5cm frontal mass with cerebral edema. She was admitted here for radiation oncology evaluation and pulmonology consultation. Her only complaint is that she has a headache. Her sister states that prior to 01/23 they were unaware she was so weak but they did not actively check on her. They had noticed that she has had almost no appetite and has been losing weight over the past few weeks. Her sister believes she has lost 20lbs. Subjective/Events-last exam Pt reports feeling better. Slightly more alert. Son at bedside request darker room to help with sleep. Discussed with RN and was able to move left arm and leg overnight. Objective Exam Vital Signs Vital Signs Date Time Temp Pulse Resp B/P (MAP) Pulse Ox O2 Delivery O2 Flow Rate FiO2 01/30/18 08:00 96 Room Air 01/30/18 07:00 74 01/30/18 04:52 97.9 20 141/63 (89) 01/29/18 20:17 3.00 01/27/18 15:57 21 Capillary Refill : General Appearance: No Apparent Distress, WD/WN Respiratory: Lungs Clear, No Respiratory Distress Cardiovascular: Regular Rate, Rhythm, No Murmur Gastrointestinal: Normal Bowel Sounds, Non Tender, Soft Extremity: No Calf Tenderness, No Pedal Edema, Other (left leg 0/5 strength, left arm 1/5) Neurologic/Psychiatric: Alert, Oriented x3 Results/Procedures Lab Laboratory Tests 01/30/18 05:15 Patient resulted labs reviewed. Imaging: Reviewed Imaging Films, Reviewed Imaging Report Assessment/Plan Assessment and Plan Assess & Plan/Chief Complaint Cerebral Edema, brain mets Diagnosis/Problems Diagnosis/Problems (1) Cerebral edema Status: Acute Assessment & Plan: Due to 4x5 cm mass Images uploaded for Pulm and rad/onc review Rad/Onc consulted, appreciate recs Cont Decadron Transfer to floor (2) Lung mass Status: Acute Assessment & Plan: Lung mass on CT with lymphadenopathy Underwent EBUS10/24 AM Await path Oncology consulted, appreciate recs Discussed with Dr Dos Santos (3) Left-sided weakness Assessment & Plan: Due to mass Continue decadron Slightly improved overnight Clinical Quality Measures DVT/VTE Risk/Contraindication: Risk Factor Score Per Nursin RFS Level Per Nursing on Admit: 4+=Very High MARLEY BURT MD Jan 29, 2018 07:35
[2018-01-29] MEDS: MAGNESIUM 1 GM/100 ML IVPB 100 ML IV SCH ×3 (09:15→14:20)
[2018-01-29] MEDS: POTASSIUM CL 10MEQ/50ML IVPB 50 ML IV SCH ×6 (09:15→14:20)
[2018-01-29] MEDS: morphine INJ 4 MG/ML 1 ML (VIAL/SYRINGE) IVP PRN (20:59)
[2018-01-30] VITALS: BP 148/68
[2018-01-30] MEDS: DEXAMETHASONE 4 MG/ML SDV (DECADRON) IV SCH ×4 (00:48→17:46)
[2018-01-30] MEDS: NS IV 1000 ML 1,000 ML IV SCH ×3 (03:10→22:52)
[2018-01-30 04:52] VITALS: BP 141/63
[2018-01-30] MEDS: inSUlin ASPART (NovoLOG) 1 UNIT/0.01 ML (CHARGE PER UNIT) SC SCH ×4 (05:35→20:48)
[2018-01-30 05:46] LABS: BASOPHILS % (AUTO) 0 % (0-10); EOSINOPHILS % (AUTO) 0 % (0-10); HEMATOCRIT 35 % (35-52); HEMOGLOBIN 11.8 G/DL (11.5-16.0); LYMPHOCYTES # (AUTO) 1.7 X 10^3 (1.0-4.0); LYMPHOCYTES % (AUTO) 11 % (12-44); MEAN CORPUSCULAR HEMOGLOBIN 31 PG (25-34); MEAN CORPUSCULAR HGB CONC 34 G/DL (32-36); MEAN CORPUSCULAR VOLUME 91 FL (80-99); MEAN PLATELET VOLUME 10.2 FL (7.4-10.4); MONOCYTES # (AUTO) 0.6 X 10^3 (0.0-1.0); MONOCYTES % (AUTO) 4 % (0-12); NEUTROPHILS # (AUTO) 14.1 X 10^3 (1.8-7.8); NEUTROPHILS % (AUTO) 86 % (42-75); PLATELET COUNT 468 10^3/uL (130-400); RED BLOOD COUNT 3.81 10^6/uL (4.35-5.85); RED CELL DISTRIBUTION WIDTH 12.7 % (10.0-14.5); WHITE BLOOD COUNT 16.5 10^3/uL (4.3-11.0)
[2018-01-30 06:00] LABS: BUN/CREATININE RATIO 13; CALCIUM 9.2 MG/DL (8.5-10.1); CARBON DIOXIDE 23 MMOL/L (21-32); CHLORIDE 97 MMOL/L (98-107); CREATININE SERUM 0.46 MG/DL (0.60-1.30); GFR ESTIMATED > 60; GLUCOSE 133 MG/DL (70-105); POTASSIUM 3.7 MMOL/L (3.6-5.0); SODIUM 132 MMOL/L (135-145)
[2018-01-30 08:00] VITALS: BP 139/74
--- NOTE | 2018-01-30 08:58 | Pulmonary Progress Note ---
Subjective Time Seen by a Provider: 10:16 Subjective/Events-last exam Family at bedside. No complications noted. Sepsis Event Evaluation Height, Weight, BMI Height: 4'11.00" Weight: 91lbs. 7.0oz. 41.539009fh; 17.5 BMI Method: Exam Exam Vital Signs Date Time Temp Pulse Resp B/P (MAP) Pulse Ox O2 Delivery O2 Flow Rate FiO2 01/30/18 08:00 96 Room Air 01/30/18 04:53 73 01/30/18 04:52 97.9 77 20 141/63 (89) 93 Room Air 01/30/18 04:00 94 Room Air 01/30/18 00:08 94 Room Air 01/30/18 00:00 98.4 72 16 148/68 (94) 93 Room Air 01/29/18 20:17 Nasal Cannula 3.00 01/29/18 20:00 98.4 73 16 142/76 (98) 96 Room Air 01/29/18 20:00 94 Room Air 01/29/18 16:00 94 Room Air 01/29/18 16:00 69 13 150/68 (95) 96 Room Air 01/29/18 13:00 86 01/29/18 12:00 69 13 150/68 (95) 96 Room Air 01/29/18 12:00 94 Room Air 01/29/18 09:15 Nasal Cannula 3.00 I & O 01/30/18 06:59 Intake Total 1540 ml Output Total 4375 ml Balance -2835 ml Height & Weight Height: 4'11.00" Weight: 91lbs. 7.0oz. 41.790567aj; 17.5 BMI Method: General Appearance: No Apparent Distress, WD/WN HEENT: PERRL/EOMI; No Scleral Icterus (L), No Scleral Icterus (R) Neck: Normal Inspection; No Thyromegaly Respiratory: Lungs Clear, No Respiratory Distress Cardiovascular: Regular Rate, Rhythm, No Murmur Extremity: No Calf Tenderness, No Pedal Edema, Other (left leg 0/5 strength, left arm 1/5) Neurologic/Psychiatric: Alert, Oriented x3 Skin: Normal Color, Warm/Dry Results Lab Laboratory Tests 01/29/18 03:30 01/30/18 05:15 Assessment/Plan Assessment/Plan arge lung mass s/p bronchoscopy with EBUS -Oncology and radiation oncology consulted Brain mass with left sided weakness -Decadron Left sided hemiparalysis LUIS -Pain control Cytology is still pending. AKILA ROCHE DO Jan 30, 2018 08:58
--- NOTE | 2018-01-30 09:49 | Progress Note-Hospitalist ---
Subjective HPI/CC On Admission Date Seen by Provider: Jan 30, 2018 Time Seen by Provider: 09:44 Pt is a a 62yoCF who presented as a direct admission from Dr Benitez's office. She is very tired and offers very little history so all history is obtained from sister at bedside and Dr Benitez. She reportedly fell on Friday and was brought to [facility] and admitted for pneumonia. CT Chest on 01/24 showed a large cavitating mass concerning for lung cancer with large mediastinal lymphadenopathy. She had some left sided weakness as well. She was discharged home on 01/25 with follow up with Dr Benitez today. She had a CT Head and CT Abdomen and pelvis done today and was found to have large 4x5cm frontal mass with cerebral edema. She was admitted here for radiation oncology evaluation and pulmonology consultation. Her only complaint is that she has a headache. Her sister states that prior to 01/23 they were unaware she was so weak but they did not actively check on her. They had noticed that she has had almost no appetite and has been losing weight over the past few weeks. Her sister believes she has lost 20lbs. Subjective/Events-last exam Pt reports doing better. More talkative today. Family at bedside. No complaints or concerns. Objective Exam Vital Signs Vital Signs Date Time Temp Pulse Resp B/P (MAP) Pulse Ox O2 Delivery O2 Flow Rate FiO2 01/30/18 08:00 96 Room Air 01/30/18 07:00 74 01/30/18 04:52 97.9 20 141/63 (89) 01/29/18 20:17 3.00 01/27/18 15:57 21 Capillary Refill : General Appearance: No Apparent Distress, Cachetic Respiratory: Lungs Clear, No Respiratory Distress Cardiovascular: Regular Rate, Rhythm, No Murmur Gastrointestinal: Normal Bowel Sounds, Non Tender, Soft Extremity: Other (flinches fingers of left hand, less so than yesterday) Neurologic/Psychiatric: Alert, Oriented x3 Results/Procedures Lab Laboratory Tests 01/30/18 05:15 Patient resulted labs reviewed. Imaging: Reviewed Imaging Films, Reviewed Imaging Report Assessment/Plan Assessment and Plan Assess & Plan/Chief Complaint Cerebral Edema, brain mets Diagnosis/Problems Diagnosis/Problems (1) Cerebral edema Status: Acute Assessment & Plan: Due to 4x5 cm mass Images uploaded for Pulm and rad/onc review Rad/Onc consulted, appreciate recs First round of radiation today, resume Friday Cont Decadron (2) Lung mass Status: Acute Assessment & Plan: Lung mass on CT with lymphadenopathy Underwent EBUS10/24 AM Oncology consulted, appreciate recs Discussed with Dr Dos Santos- juan tijerina (3) Left-sided weakness Assessment & Plan: Due to mass Continue decadron Remains similar to yesterday Clinical Quality Measures DVT/VTE Risk/Contraindication: Risk Factor Score Per Nursin RFS Level Per Nursing on Admit: 4+=Very High MARLEY BURT MD Jan 30, 2018 09:49
[2018-01-30] MEDS: morphine INJ 4 MG/ML 1 ML (VIAL/SYRINGE) IVP PRN ×2 (11:39→22:49)
[2018-01-30 12:00] VITALS: BP 126/70
[2018-01-30 16:31] VITALS: BP 145/72
[2018-01-30 19:12] VITALS: BP 138/68
[2018-01-31] VITALS (7 sets, daily range): BP systolic 126–151; BP diastolic 55–94
[2018-01-31] MEDS: DEXAMETHASONE 4 MG/ML SDV (DECADRON) IV SCH ×4 (00:18→18:09)
[2018-01-31 05:25] LABS: BASOPHILS % (AUTO) 0 % (0-10); EOSINOPHILS % (AUTO) 0 % (0-10); HEMATOCRIT 35 % (35-52); HEMOGLOBIN 12.1 G/DL (11.5-16.0); LYMPHOCYTES # (AUTO) 1.8 X 10^3 (1.0-4.0); LYMPHOCYTES % (AUTO) 11 % (12-44); MEAN CORPUSCULAR HEMOGLOBIN 31 PG (25-34); MEAN CORPUSCULAR HGB CONC 34 G/DL (32-36); MEAN CORPUSCULAR VOLUME 91 FL (80-99); MEAN PLATELET VOLUME 10.5 FL (7.4-10.4); MONOCYTES # (AUTO) 0.8 X 10^3 (0.0-1.0); MONOCYTES % (AUTO) 5 % (0-12); NEUTROPHILS # (AUTO) 13.6 X 10^3 (1.8-7.8); NEUTROPHILS % (AUTO) 84 % (42-75); PLATELET COUNT 420 10^3/uL (130-400); RED BLOOD COUNT 3.89 10^6/uL (4.35-5.85); RED CELL DISTRIBUTION WIDTH 12.5 % (10.0-14.5); WHITE BLOOD COUNT 16.1 10^3/uL (4.3-11.0)
[2018-01-31 06:04] LABS: BUN/CREATININE RATIO 16; CALCIUM 9.1 MG/DL (8.5-10.1); CARBON DIOXIDE 23 MMOL/L (21-32); CHLORIDE 96 MMOL/L (98-107); CREATININE SERUM 0.44 MG/DL (0.60-1.30); GFR ESTIMATED > 60; GLUCOSE 121 MG/DL (70-105); POTASSIUM 3.8 MMOL/L (3.6-5.0); SODIUM 130 MMOL/L (135-145)
[2018-01-31] MEDS: inSUlin ASPART (NovoLOG) 1 UNIT/0.01 ML (CHARGE PER UNIT) SC SCH ×3 (06:35→16:00)
[2018-01-31] MEDS: NS IV 1000 ML 1,000 ML IV SCH ×2 (08:51→18:09)
--- NOTE | 2018-01-31 09:07 | Progress Note-Hospitalist ---
Subjective HPI/CC On Admission Date Seen by Provider: Jan 31, 2018 Time Seen by Provider: 09:04 Pt is a a 62yoCF who presented as a direct admission from Dr Benitez's office. She is very tired and offers very little history so all history is obtained from sister at bedside and Dr Benitez. She reportedly fell on Friday and was brought to [facility] and admitted for pneumonia. CT Chest on 01/24 showed a large cavitating mass concerning for lung cancer with large mediastinal lymphadenopathy. She had some left sided weakness as well. She was discharged home on 01/25 with follow up with Dr Benitez today. She had a CT Head and CT Abdomen and pelvis done today and was found to have large 4x5cm frontal mass with cerebral edema. She was admitted here for radiation oncology evaluation and pulmonology consultation. Her only complaint is that she has a headache. Her sister states that prior to 01/23 they were unaware she was so weak but they did not actively check on her. They had noticed that she has had almost no appetite and has been losing weight over the past few weeks. Her sister believes she has lost 20lbs. Subjective/Events-last exam Pt reports doing well. Far more talkative today again. No complaints. States slept well. Son at bedside, no concerns or questions. Objective Exam Vital Signs Vital Signs Date Time Temp Pulse Resp B/P (MAP) Pulse Ox O2 Delivery O2 Flow Rate FiO2 01/31/18 08:00 97.2 63 12 145/65 (91) 92 Room Air 01/30/18 16:06 21 01/29/18 20:17 3.00 Capillary Refill : General Appearance: No Apparent Distress, WD/WN Respiratory: Lungs Clear, No Respiratory Distress Cardiovascular: Regular Rate, Rhythm, No Murmur Neurologic/Psychiatric: Alert, Oriented x3, Motor Weakness (left upper and lower extremity- paralysis) Results/Procedures Lab Laboratory Tests 01/31/18 04:47 Patient resulted labs reviewed. Imaging: Reviewed Imaging Films, Reviewed Imaging Report Assessment/Plan Assessment and Plan Assess & Plan/Chief Complaint Cerebral Edema, brain mets Diagnosis/Problems Diagnosis/Problems (1) Cerebral edema Status: Acute Assessment & Plan: Due to 4x5 cm mass Images uploaded for Pulm and rad/onc review Rad/Onc consulted, appreciate recs Underwent radiation yesterday, resume Friday Cont Maradron (2) Lung mass Status: Acute Assessment & Plan: Lung mass on CT with lymphadenopathy Underwent EBUS10/24 AM Oncology consulted, appreciate recs Prelim path on verbal report is adenocarcinoma of the lung- poorly differentiated (3) Left-sided weakness Assessment & Plan: Due to mass Continue decadron Remains similar to yesterday regarding motor function Clinical Quality Measures DVT/VTE Risk/Contraindication: Risk Factor Score Per Nursin RFS Level Per Nursing on Admit: 4+=Very High MARLEY BURT MD Jan 31, 2018 9:07 am
[2018-01-31] MEDS: ENOXAPARIN 40 MG/0.4 ML (LOVENOX) SYR SQ SCH (12:02)
[2018-01-31] MEDS: morphine INJ 4 MG/ML 1 ML (VIAL/SYRINGE) IVP PRN ×2 (12:03→21:47)
--- NOTE | 2018-01-31 13:37 | Consultation ---
History of Present Illness History of Present Illness Patient Consulted On(abhinav/time) 01/28/18 1145 Date Seen by Provider: Jan 28, 2018 Time Seen by Provider: 11:45 Reason for Visit: Radiation Oncology Consult History of Present Illness -62 y/o white female who was taken to [facility] after being found unresponsive on the floor of her house 01/23/18. -CXR noted a small area of pneumonia in the RUL. -She was admitted for further evaluation. -01/24/18 CXR (1) changes from emphysema and/or COPD (2) area of increased density in the RUL which is fairly solid appearing -01/24/18 CT Chest w/: (1) noted a cavitating mass in the RUL posteriorly measuring 3.2 cm (2) extensive mediastinal and hilar lymphadenopathy (3) no bone lesions 01/25/18 The patient was discharged home with PCP follow up. 01/27/[address] Benitez. Patient reporting some left sided weakness. Further scans ordered. -01/27/18 CT brain w/wo: (1) Two large masses in the brain which are enhancing masses consistent with metastatic disease from lung carcinoma. One mass in the right frontal lobe measuring 4 x 5 cm with significant vasogenic edema with midline shift from right to left. Second mass is in the left parietal lobe measuring 11 mm with edema. 01/27/18 CT Abd/Pelvis w: (1) Three small low dense lesions in the liver, too small to characterize by CT. (2) Remainder of study normal. 01/27/18 Patient was a direct admit to [facility] from Dr. Benitez's office. Dr. Elli Fitzpatrick assumed care. -initiated on decadron -rad onc consult for brain mets -Dr. Gates for biopsy evaluation (1) Dr. Gates performed bronchoscopy with biopsy (2) Inpt consult with medical oncologist, Dr. Dos Santos -will await pathology from bronch before recommending systemic treatment -concure with rad onc referral A radiation oncology consult was made for evaluation and consideration of palliative brain radiotherapy; thus, my visit with the patient today. Allergies and Home Medications Allergies Coded Allergies: No Allergy Information Available (Unverified , 01/27/18) Home Medications Naproxen Sodium 220 Mg Tablet, 440 MG PO BID PRN for PAIN-MILD, (Reported) Patient Home Medication List Home Medication List Reviewed: Yes Past Wcvkawn-Byefho-Wdukcd Hx Past Med/Social Hx: Reviewed Nursing Past Med/Soc Hx Patient Social History Alcohol Use: Past History (quit 3-4 months ago) Recreational Drug Use: Yes Drug of Choice: THC Smoking Status: Never a Smoker (never smoked cigarettes, but she has smoked marijuana for 30-40 years on a regular basis.) Recent Foreign Travel: No Contact w/Someone Who Travel: No Recent Infectious Disease Expo: No Immunizations Up To Date Date of Influenza Vaccine: Jan 25, 2018 Seasonal Allergies Seasonal Allergies: No Past Medical History Surgeries: Yes Hysterectomy Respiratory: Yes (New DX of Lung Mass) Pneumonia Currently Using CPAP: No Currently Using BIPAP: No Cardiac: No Neurological: Yes (New DX of Frontal Lobe mass) Hx : 3 Hx Para: 3 Female Reproductive Disorders: Endometriosis Sexually Transmitted Disease: No Genitourinary: No Gastrointestinal: No (poor appiete and weight loss) Musculoskeletal: Yes (New weakness and inability to walk, left sided) Endocrine: No HEENT: No Cancer: Yes (New DX lung and frontal lobe masses) Psychosocial: No Integumentary: No Blood Disorders: No Adverse Reaction/Blood Tranf: No Family Medical History Reviewed Nursing Family Hx Cancer (Dad- lung cancer) Review of Systems-General ROS-Unable to Obtain: Unable to Obtain - Physical Exam-General Problems Physical Exam Vital Signs Vital Signs - First Documented 01/27/18 01/27/18 01/29/18 12:30 15:57 09:15 Temp 98.8 Pulse 76 Resp 11 B/P (MAP) 146/75 (98) Pulse Ox 96 O2 Delivery Room Air O2 Flow Rate 3.00 FiO2 21 Capillary Refill : General Appearance: WD/WN, no apparent distress Respiratory: no respiratory distress Neurologic/Psychiatric: other (she would arouse to verbal request but was very drowsy from bronchoscopy sedation) Skin: warm/dry Assessment/Plan Assessment/Plan Admission Diagnosis/Plan Lung mass - most likely lung cancer Brain lesions - consistent with metastatic disease from lung cancer I offered the patient/sister a two week course of palliative whole brain irradiation. We would attempt to deliver 30 Gy /10 fxs utilizing standard radiotherapy treatment technique. The acute toxicities, intermediate complications, hoped for benefit and logistics were reviewed. The patient is in agreement to proceed. She is sedated right now. Her daughter from [place], who is her MDPA, is on her way. We will obtain the appropriate consent. A treatment planning ct simulation will be performed later today. I explained we will plan her treatment and be ready to begin once the pathology from her bronchoscopy is back. Reason for Inpatient Admission: mental status changes and left-sided weakness Clinical Quality Measures DVT/VTE Risk/Contraindication: Risk Factor Score Per Nursin RFS Level Per Nursing on Admit: 4+=Very High BREANN GILMORE MD Jan 31, 2018 13:37
[2018-02-01] MEDS: DEXAMETHASONE 4 MG/ML SDV (DECADRON) IV SCH ×4 (01:03→18:25)
[2018-02-01] MEDS: inSUlin ASPART (NovoLOG) 1 UNIT/0.01 ML (CHARGE PER UNIT) SC SCH ×5 (01:09→21:31)
[2018-02-01 04:20] VITALS: BP 124/70
[2018-02-01] MEDS: NS IV 1000 ML 1,000 ML IV SCH ×2 (04:29→14:39)
[2018-02-01 08:00] VITALS: BP 143/67
[2018-02-01] MEDS: ENOXAPARIN 40 MG/0.4 ML (LOVENOX) SYR SQ SCH (09:36)
--- NOTE | 2018-02-01 10:01 | Progress Note-Hospitalist ---
Subjective HPI/CC On Admission Date Seen by Provider: Feb 01, 2018 Time Seen by Provider: 09:59 Pt is a a 62yoCF who presented as a direct admission from Dr Benitez's office. She is very tired and offers very little history so all history is obtained from sister at bedside and Dr Benitez. She reportedly fell on Friday and was brought to [facility] and admitted for pneumonia. CT Chest on 01/24 showed a large cavitating mass concerning for lung cancer with large mediastinal lymphadenopathy. She had some left sided weakness as well. She was discharged home on 01/25 with follow up with Dr Benitez today. She had a CT Head and CT Abdomen and pelvis done today and was found to have large 4x5cm frontal mass with cerebral edema. She was admitted here for radiation oncology evaluation and pulmonology consultation. Her only complaint is that she has a headache. Her sister states that prior to 01/23 they were unaware she was so weak but they did not actively check on her. They had noticed that she has had almost no appetite and has been losing weight over the past few weeks. Her sister believes she has lost 20lbs. Subjective/Events-last exam Laying in bed watching Tv, Resting comfortably. No complaints. Feeling better today. Objective Exam Vital Signs Vital Signs Date Time Temp Pulse Resp B/P (MAP) Pulse Ox O2 Delivery O2 Flow Rate FiO2 02/01/18 08:30 92 Room Air 02/01/18 08:00 97.5 62 18 143/67 (92) 01/31/18 21:00 0.00 01/30/18 16:06 21 Capillary Refill : Less Than 3 Seconds General Appearance: No Apparent Distress, Cachetic Respiratory: Lungs Clear, No Respiratory Distress Cardiovascular: Regular Rate, Rhythm, No Murmur Gastrointestinal: Normal Bowel Sounds, Soft Extremity: Other (paralysis in left upper and lower extremity remains) Neurologic/Psychiatric: Alert, Oriented x3 Results/Procedures Lab Patient resulted labs reviewed. Imaging: Reviewed Imaging Films, Reviewed Imaging Report Assessment/Plan Assessment and Plan Assess & Plan/Chief Complaint Cerebral Edema, brain mets Diagnosis/Problems Diagnosis/Problems (1) Cerebral edema Status: Acute Assessment & Plan: Due to 4x5 cm mass Images uploaded for Pulm and rad/onc review Rad/Onc consulted, appreciate recs Underwent radiation yesterday, resume tomorrow Cont Decadron (2) Lung mass Status: Acute Assessment & Plan: Lung mass on CT with lymphadenopathy Underwent EBUS10/24 AM Oncology consulted, appreciate recs Prelim path on verbal report is adenocarcinoma of the lung- poorly differentiated (3) Left-sided weakness Assessment & Plan: Due to mass Continue decadron Remains similar to yesterday regarding motor function (4) Discharge planning issues Assessment & Plan: Previously lived at home by herself Sisters to help during day Daughter would like to arrange night time help as well Social work consulted, appreciate recs Clinical Quality Measures DVT/VTE Risk/Contraindication: Risk Factor Score Per Nursin RFS Level Per Nursing on Admit: 4+=Very High MARLEY BURT MD Feb 01, 2018 10:01 am
[2018-02-01 12:00] VITALS: BP 144/65
[2018-02-01] MEDS ORDERED: LORazepam INJ 2 MG/ML (ATIVAN) VIAL ONE (15:03)
[2018-02-01] MEDS ORDERED: LORazepam INJ 2 MG/ML (ATIVAN) VIAL IVP ONE (15:10)
[2018-02-01] MEDS ORDERED: LORazepam INJ 2 MG/ML (ATIVAN) VIAL IVP PRN (15:15)
[2018-02-01] MEDS ORDERED: LEVETIRACETAM INJECTION 1,000 MG in NS (IVPB) 100 ML IV SCH ×2 (15:40→21:00)
[2018-02-01 15:55] VITALS: BP 136/64
[2018-02-01] MEDS: LEVETIRACETAM INJECTION 1,000 MG in NS (IVPB) 100 ML IV SCH ×2 (16:04→21:31)
[2018-02-01 20:45] VITALS: BP 152/79
[2018-02-02 00:08] VITALS: BP 140/73
[2018-02-02] MEDS: DEXAMETHASONE 4 MG/ML SDV (DECADRON) IV SCH ×4 (00:26→18:12)
[2018-02-02] MEDS: NS IV 1000 ML 1,000 ML IV SCH ×3 (01:35→20:43)
[2018-02-02 04:04] VITALS: BP 137/69
[2018-02-02] MEDS: inSUlin ASPART (NovoLOG) 1 UNIT/0.01 ML (CHARGE PER UNIT) SC SCH ×4 (05:28→20:34)
[2018-02-02 08:00] VITALS: BP 134/70
[2018-02-02] MEDS: LEVETIRACETAM INJECTION 1,000 MG in NS (IVPB) 100 ML IV SCH ×2 (08:34→20:43)
[2018-02-02] MEDS: ENOXAPARIN 40 MG/0.4 ML (LOVENOX) SYR SQ SCH (08:34)
[2018-02-02] MEDS: morphine INJ 4 MG/ML 1 ML (VIAL/SYRINGE) IVP PRN ×2 (08:38→16:44)
[2018-02-02 12:00] VITALS: BP 128/66
[2018-02-02 16:00] VITALS: BP 117/64
--- NOTE | 2018-02-02 17:20 | Progress Note-Hospitalist ---
Progress Note Progress Notes/Assess & Plan Date Seen 02/02/18 Time Seen by Provider: 17:17 Assessment & Plan The patient is a 62-year-old white female referred here from [facility] after she was found to have a mass in the upper portion of the right lower lobe and a significant mass with edema in the right frontal area of the brain. She has had seizures as a consequence. She is currently very somnolent as she received some morphine after returning from her radiation treatment. Her son is in the room and we discussed her situation and prospects. He is quite aware that this is a rather imminently terminal circumstance. Physical exam: The patient is deeply asleep and does not respond to voice or pinching. Lungs show a shallow regular respiration. CV is regular. The patient is noted to be very thin. Impression: Carcinoma of the right lower lobe. 2.metastatic tumor to the right frontal area. Prognosis: Poor MAURI JOHNSON MD Feb 02, 2018 17:20
[2018-02-02 19:20] VITALS: BP 122/58
[2018-02-03 00:27] VITALS: BP 128/59
[2018-02-03] MEDS: DEXAMETHASONE 4 MG/ML SDV (DECADRON) IV SCH ×5 (00:35→23:21)
[2018-02-03 04:04] VITALS: BP 134/59
[2018-02-03] MEDS: inSUlin ASPART (NovoLOG) 1 UNIT/0.01 ML (CHARGE PER UNIT) SC SCH ×4 (05:32→21:22)
[2018-02-03] MEDS: NS IV 1000 ML 1,000 ML IV SCH ×2 (05:58→14:14)
[2018-02-03 08:43] VITALS: BP 126/59
[2018-02-03] MEDS: LEVETIRACETAM INJECTION 1,000 MG in NS (IVPB) 100 ML IV SCH ×2 (09:21→20:36)
[2018-02-03] MEDS: ENOXAPARIN 40 MG/0.4 ML (LOVENOX) SYR SQ SCH (09:22)
[2018-02-03 11:26] VITALS: BP 134/69
--- NOTE | 2018-02-03 13:15 | Progress Note-Hospitalist ---
Progress Note Progress Notes/Assess & Plan Date Seen 02/03/18 Time Seen by Provider: 13:11 Assessment & Plan The patient is more alert today than during my visit yesterday. Her son believes that her performance appears somewhat improved today. She had her last seizure on Friday. She has completed her radiation for the day. Her son states that she ate a piece of reynoso, a muffin, and took and sure for breakfast. She has no complaints. Physical exam: She is alert but does not initiate any conversation. She does answer yes and no to questioning. She is very gaunt. Lungs are clear to auscultation. CV is regular. Impression: Carcinoma of the lung, superior portion right lower lobe. 2.right prefrontal metastasis presumably from number 1. Plan: Continue radiation therapy and Decadron. MAURI JOHNSON MD Feb 03, 2018 13:15
[2018-02-03 16:00] VITALS: BP 126/70
[2018-02-03 19:45] VITALS: BP 144/69
[2018-02-03] MEDS: APAP 325 MG/10.15 ML LIQ (TYLENOL) UDC PO PRN (20:36)
[2018-02-03] MEDS: morphine INJ 4 MG/ML 1 ML (VIAL/SYRINGE) IVP PRN (20:43)
[2018-02-04] MEDS: NS IV 1000 ML 1,000 ML IV SCH (00:36)
[2018-02-04 00:53] VITALS: BP 139/73
[2018-02-04 04:05] VITALS: BP 132/75
[2018-02-04] MEDS: inSUlin ASPART (NovoLOG) 1 UNIT/0.01 ML (CHARGE PER UNIT) SC SCH ×4 (06:42→21:42)
[2018-02-04] MEDS: DEXAMETHASONE 4 MG/ML SDV (DECADRON) IV SCH ×3 (06:42→17:33)
[2018-02-04 08:00] VITALS: BP 132/73
[2018-02-04] MEDS: LEVETIRACETAM 1,000 MG (KEPPRA) TABLET PO SCH ×2 (09:39→20:52)
[2018-02-04] MEDS: ENOXAPARIN 40 MG/0.4 ML (LOVENOX) SYR SQ SCH (09:39)
--- NOTE | 2018-02-04 10:41 | Progress Note-Hospitalist ---
Subjective HPI/CC On Admission Date Seen by Provider: Feb 04, 2018 Time Seen by Provider: 09:45 Pt is a a 62yoCF who presented as a direct admission from Dr Benitez's office. She is very tired and offers very little history so all history is obtained from sister at bedside and Dr Benitez. She reportedly fell on Friday and was brought to [facility] and admitted for pneumonia. CT Chest on 01/24 showed a large cavitating mass concerning for lung cancer with large mediastinal lymphadenopathy. She had some left sided weakness as well. She was discharged home on 01/25 with follow up with Dr Benitez today. She had a CT Head and CT Abdomen and pelvis done today and was found to have large 4x5cm frontal mass with cerebral edema. She was admitted here for radiation oncology evaluation and pulmonology consultation. Her only complaint is that she has a headache. Her sister states that prior to 01/23 they were unaware she was so weak but they did not actively check on her. They had noticed that she has had almost no appetite and has been losing weight over the past few weeks. Her sister believes she has lost 20lbs. Subjective/Events-last exam Son at the bedside Patient's sleeping soundly Does not appear to be in any pain Radiation treatment continues but unsure of any type of palliative results Objective Exam Vital Signs Vital Signs Date Time Temp Pulse Resp B/P (MAP) Pulse Ox O2 Delivery O2 Flow Rate FiO2 02/04/18 08:40 Room Air 02/04/18 08:24 93 02/04/18 08:00 97.0 61 14 132/73 (92) 02/02/18 16:09 21 01/31/18 21:00 0.00 Capillary Refill : Less Than 3 Seconds General Appearance: No Apparent Distress, WD/WN, Chronically ill, Thin Respiratory: Chest Non Tender, Lungs Clear, Normal Breath Sounds, No Accessory Muscle Use, No Respiratory Distress Cardiovascular: Regular Rate, Rhythm, No Edema, No Gallop, No JVD, No Murmur, Normal Peripheral Pulses Neurologic/Psychiatric: Other (sleeping) Results/Procedures Lab Patient resulted labs reviewed. Imaging: Reviewed Imaging Films, Reviewed Imaging Report Assessment/Plan Assessment and Plan Assess & Plan/Chief Complaint Assessment: Lung cancer with brain mets Seizure Friday Poor prognosis Plan: radiation treatment Poor prognosis Seizure precautions Diagnosis/Problems Diagnosis/Problems (1) Brain mass Status: Acute (2) Poor prognosis Status: Acute (3) Seizure Status: Acute (4) Left-sided weakness Status: Acute (5) Lung mass Status: Acute (6) Cerebral edema Status: Acute Clinical Quality Measures DVT/VTE Risk/Contraindication: Risk Factor Score Per Nursin RFS Level Per Nursing on Admit: 4+=Very High EMMA REID DO Feb 04, 2018 10:41
[2018-02-04 12:59] VITALS: BP 106/66
[2018-02-04 15:50] VITALS: BP 131/67
[2018-02-04] MEDS: APAP 325 MG/10.15 ML LIQ (TYLENOL) UDC PO PRN (17:38)
[2018-02-04] MEDS: morphine INJ 4 MG/ML 1 ML (VIAL/SYRINGE) IVP PRN (20:53)
[2018-02-05 00:02] VITALS: BP 120/60
[2018-02-05] MEDS: DEXAMETHASONE 4 MG/ML SDV (DECADRON) IV SCH ×4 (00:48→18:14)
[2018-02-05] MEDS: inSUlin ASPART (NovoLOG) 1 UNIT/0.01 ML (CHARGE PER UNIT) SC SCH ×4 (06:26→20:59)
[2018-02-05 08:00] VITALS: BP 127/65
[2018-02-05] MEDS: LEVETIRACETAM 1,000 MG (KEPPRA) TABLET PO SCH ×2 (08:16→20:42)
[2018-02-05] MEDS: ENOXAPARIN 40 MG/0.4 ML (LOVENOX) SYR SQ SCH (08:17)
[2018-02-05] MEDS: NS IV 1000 ML 1,000 ML IV SCH (08:33)
[2018-02-05] MEDS: APAP 325 MG/10.15 ML LIQ (TYLENOL) UDC PO PRN ×2 (08:34→19:24)
--- NOTE | 2018-02-05 09:27 | Progress Note-Hospitalist ---
Subjective HPI/CC On Admission Date Seen by Provider: Feb 05, 2018 Time Seen by Provider: 09:30 Pt is a a 62yoCF who presented as a direct admission from Dr Benitez's office. She is very tired and offers very little history so all history is obtained from sister at bedside and Dr Benitez. She reportedly fell on Friday and was brought to [facility] and admitted for pneumonia. CT Chest on 01/24 showed a large cavitating mass concerning for lung cancer with large mediastinal lymphadenopathy. She had some left sided weakness as well. She was discharged home on 01/25 with follow up with Dr Benitez today. She had a CT Head and CT Abdomen and pelvis done today and was found to have large 4x5cm frontal mass with cerebral edema. She was admitted here for radiation oncology evaluation and pulmonology consultation. Her only complaint is that she has a headache. Her sister states that prior to 01/23 they were unaware she was so weak but they did not actively check on her. They had noticed that she has had almost no appetite and has been losing weight over the past few weeks. Her sister believes she has lost 20lbs. Subjective/Events-last exam Patient alert today No complications with radiation treatment Ate fruit cup today Overall the family has no concerns Review of Systems HEENT: Head Aches Neurological: Numbness Objective Exam Vital Signs Vital Signs Date Time Temp Pulse Resp B/P (MAP) Pulse Ox O2 Delivery O2 Flow Rate FiO2 02/05/18 00:02 97.8 69 16 120/60 (80) 94 Room Air 02/02/18 16:09 21 01/31/18 21:00 0.00 Capillary Refill : Less Than 3 Seconds General Appearance: No Apparent Distress, WD/WN, Chronically ill Respiratory: Chest Non Tender, Lungs Clear, Normal Breath Sounds, No Accessory Muscle Use, No Respiratory Distress Cardiovascular: Regular Rate, Rhythm, No Edema, No Gallop, No JVD, No Murmur, Normal Peripheral Pulses Neurologic/Psychiatric: Motor Weakness (left) Results/Procedures Lab Patient resulted labs reviewed. Imaging: Reviewed Imaging Films, Reviewed Imaging Report Assessment/Plan Assessment and Plan Assess & Plan/Chief Complaint Assessment: Lung cancer with brain mets Seizure Friday Poor prognosis Plan: radiation treatment Poor prognosis Seizure precautions Diagnosis/Problems Diagnosis/Problems (1) Brain mass Status: Acute (2) Poor prognosis Status: Acute (3) Seizure Status: Acute (4) Left-sided weakness Status: Acute (5) Lung mass Status: Acute (6) Cerebral edema Status: Acute Clinical Quality Measures DVT/VTE Risk/Contraindication: Risk Factor Score Per Nursin RFS Level Per Nursing on Admit: 4+=Very High EMMA REID DO Feb 05, 2018 09:27
[2018-02-05] MEDS: morphine INJ 4 MG/ML 1 ML (VIAL/SYRINGE) IVP PRN ×2 (11:46→20:59)
[2018-02-05 15:20] VITALS: BP 127/65
[2018-02-05 16:01] VITALS: BP 141/71
[2018-02-06] VITALS: BP 114/53
[2018-02-06] MEDS: DEXAMETHASONE 4 MG/ML SDV (DECADRON) IV SCH ×4 (00:15→18:11)
[2018-02-06] MEDS: NS IV 1000 ML 1,000 ML IV SCH (04:22)
[2018-02-06] MEDS: inSUlin ASPART (NovoLOG) 1 UNIT/0.01 ML (CHARGE PER UNIT) SC SCH ×4 (06:31→21:36)
[2018-02-06 08:00] VITALS: BP 143/64
[2018-02-06] MEDS: LEVETIRACETAM 1,000 MG (KEPPRA) TABLET PO SCH ×2 (08:24→21:36)
[2018-02-06] MEDS: ENOXAPARIN 40 MG/0.4 ML (LOVENOX) SYR SQ SCH (08:25)
--- NOTE | 2018-02-06 11:31 | Progress Note-Hospitalist ---
EMMA REID DO 02/06/18 1130: Subjective HPI/CC On Admission Date Seen by Provider: Feb 06, 2018 Time Seen by Provider: 11:00 Pt is a a 62yoCF who presented as a direct admission from Dr Benitez's office. She is very tired and offers very little history so all history is obtained from sister at bedside and Dr Benitez. She reportedly fell on Friday and was brought to [facility] and admitted for pneumonia. CT Chest on 01/24 showed a large cavitating mass concerning for lung cancer with large mediastinal lymphadenopathy. She had some left sided weakness as well. She was discharged home on 01/25 with follow up with Dr Benitez today. She had a CT Head and CT Abdomen and pelvis done today and was found to have large 4x5cm frontal mass with cerebral edema. She was admitted here for radiation oncology evaluation and pulmonology consultation. Her only complaint is that she has a headache. Her sister states that prior to 01/23 they were unaware she was so weak but they did not actively check on her. They had noticed that she has had almost no appetite and has been losing weight over the past few weeks. Her sister believes she has lost 20lbs. Subjective/Events-last exam Patient is doing about the same Radiation treatment tolerated Poor prognosis Objective Exam Vital Signs Vital Signs Date Time Temp Pulse Resp B/P (MAP) Pulse Ox O2 Delivery O2 Flow Rate FiO2 02/06/18 09:29 90 Room Air 02/06/18 08:00 97.9 65 16 143/64 (90) 02/05/18 15:20 21 01/31/18 21:00 0.00 Capillary Refill : Less Than 3 Seconds General Appearance: No Apparent Distress, WD/WN, Chronically ill Respiratory: Chest Non Tender, Lungs Clear, Normal Breath Sounds, No Accessory Muscle Use, No Respiratory Distress Cardiovascular: Regular Rate, Rhythm, No Edema, No Gallop, No JVD, No Murmur, Normal Peripheral Pulses Results/Procedures Lab Patient resulted labs reviewed. Imaging: Reviewed Imaging Films, Reviewed Imaging Report Assessment/Plan Assessment and Plan Assess & Plan/Chief Complaint Assessment: Lung cancer with brain mets Seizure Friday Poor prognosis Plan: radiation treatment Poor prognosis Seizure precautions Diagnosis/Problems Diagnosis/Problems (1) Brain mass Status: Acute (2) Poor prognosis Status: Acute (3) Seizure Status: Acute (4) Left-sided weakness Status: Acute (5) Lung mass Status: Acute (6) Cerebral edema Status: Acute Clinical Quality Measures DVT/VTE Risk/Contraindication: Risk Factor Score Per Nursin RFS Level Per Nursing on Admit: 4+=Very High SCOTT LESTER MED STUDENT 02/06/18 1152: Subjective Subjective/Events-last exam Pt. states that she is feeling better today She claims that her right side of the head is hurting and her back is hurting She states that she is not experiencing any other pain She reports a loss of appetite Objective Exam General Appearance: No Apparent Distress, Chronically ill, Cachetic Respiratory: Chest Non Tender, Lungs Clear, Normal Breath Sounds, No Accessory Muscle Use, No Respiratory Distress Cardiovascular: Regular Rate, Rhythm, No Edema, No Gallop, No JVD, No Murmur Neurologic/Psychiatric: Alert, Oriented x3, No Motor/Sensory Deficits, Normal Mood/Affect Skin: Normal Color, Warm/Dry Assessment/Plan Assessment and Plan Assess & Plan/Chief Complaint Assessment: 1) Lung cancer with brain metastasis Plan: 1) Continue radiation 2) Continue pain control EMMA REID DO Feb 06, 2018 11:30 SCOTT LESTER MED STUDENT Feb 06, 2018 11:52
[2018-02-06] MEDS: APAP 325 MG/10.15 ML LIQ (TYLENOL) UDC PO PRN (13:27)
[2018-02-06] MEDS: morphine INJ 4 MG/ML 1 ML (VIAL/SYRINGE) IVP PRN (14:04)
[2018-02-06 15:30] VITALS: BP 130/65
--- NOTE | 2018-02-06 17:01 | Progress Note-Standard ---
Standard Progress Note Progress Notes/Assess & Plan Date Seen by a Provider: Feb 06, 2018 Time Seen by a Provider: 16:55 Progress/Assessment & Plan 62-year-old female admitted with mental status changes and left-sided weakness. Found to have large right frontal lobe mass with significant surrounding edema as well as large right lung cavitating mass. 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 Patient is on dexamethasone 4 mg IV every 6 hours and undergoing palliative whole brain radiation therapy. She has completed 6/10 treatments so far. She is more awake and talkative at times but somnolent and difficult to arouse at other times. She is requiring parenteral morphine therapy intermittently for headaches. She is also on Keppra 1 g twice a day because of seizure. Met with patient's son yesterday morning who has since returned to [place]. Continue parenteral steroids and radiation therapy for now. Starting early next week, I' ll recommend weaning her dexamethasone. According to family, the plan is to return to her home with help from her sisters. greeter guest services following patient. Following radiation therapy, if her performance status improves appreciably, I would discuss about further systemic therapy. If her general condition and performance status does not improve, she may be a candidate for best supportive care. I will follow the patient with you. JUNI FONSCEA Feb 06, 2018 17:01
[2018-02-06 23:59] VITALS: BP 118/55
[2018-02-07] MEDS: DEXAMETHASONE 4 MG/ML SDV (DECADRON) IV SCH ×5 (00:09→23:51)
[2018-02-07] MEDS: NS IV 1000 ML 1,000 ML IV SCH ×2 (00:10→21:10)
[2018-02-07] MEDS: morphine INJ 4 MG/ML 1 ML (VIAL/SYRINGE) IVP PRN ×2 (00:20→12:19)
[2018-02-07] MEDS: inSUlin ASPART (NovoLOG) 1 UNIT/0.01 ML (CHARGE PER UNIT) SC SCH ×4 (07:04→21:10)
[2018-02-07 08:00] VITALS: BP 120/76
[2018-02-07] MEDS: ENOXAPARIN 40 MG/0.4 ML (LOVENOX) SYR SQ SCH (09:30)
[2018-02-07] MEDS: LEVETIRACETAM 1,000 MG (KEPPRA) TABLET PO SCH ×2 (09:30→21:10)
--- NOTE | 2018-02-07 12:11 | Progress Note-Hospitalist ---
Subjective HPI/CC On Admission Date Seen by Provider: Feb 07, 2018 Time Seen by Provider: 10:30 Pt is a a 62yoCF who presented as a direct admission from Dr Benitez's office. She is very tired and offers very little history so all history is obtained from sister at bedside and Dr Benitez. She reportedly fell on Friday and was brought to [facility] and admitted for pneumonia. CT Chest on 01/24 showed a large cavitating mass concerning for lung cancer with large mediastinal lymphadenopathy. She had some left sided weakness as well. She was discharged home on 01/25 with follow up with Dr Benitez today. She had a CT Head and CT Abdomen and pelvis done today and was found to have large 4x5cm frontal mass with cerebral edema. She was admitted here for radiation oncology evaluation and pulmonology consultation. Her only complaint is that she has a headache. Her sister states that prior to 01/23 they were unaware she was so weak but they did not actively check on her. They had noticed that she has had almost no appetite and has been losing weight over the past few weeks. Her sister believes she has lost 20lbs. Subjective/Events-last exam Patient is without complaint today but she is commenting about her son bossing her around. he is not present in the room despite her admonition that he is Review of Systems Neurological: Weakness, Confusion Objective Exam Vital Signs Vital Signs Date Time Temp Pulse Resp B/P (MAP) Pulse Ox O2 Delivery O2 Flow Rate FiO2 02/07/18 08:00 97.2 74 16 120/76 (91) 96 Room Air 02/05/18 15:20 21 Capillary Refill : Less Than 3 Seconds General Appearance: Chronically ill HEENT: Normal ENT Inspection Neck: Limited Range of Motion Respiratory: Lungs Clear, Normal Breath Sounds, No Accessory Muscle Use, No Respiratory Distress Cardiovascular: Regular Rate, Rhythm, No Gallop, Normal Peripheral Pulses, Systolic Murmur Gastrointestinal: Non Tender, Soft Rectal: Deferred Back: Normal Inspection Extremity: Normal Capillary Refill, Non Tender, No Calf Tenderness Neurologic/Psychiatric: Alert, Oriented x3, Normal Mood/Affect Skin: Pallor Results/Procedures Lab Patient resulted labs reviewed. Imaging: Reviewed Imaging Films, Reviewed Imaging Report Assessment/Plan Assessment and Plan Assess & Plan/Chief Complaint 1. Metastatic cancer of the lung to the brain 2. 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 Confusion most likely secondary to number 1 and medications. Will continue radiation. Clinical Quality Measures DVT/VTE Risk/Contraindication: Risk Factor Score Per Nursin RFS Level Per Nursing on Admit: 4+=Very High SARAH JONES MD Feb 07, 2018 12:11 pm
[2018-02-07 16:15] VITALS: BP 117/70
[2018-02-08] VITALS: BP 132/62
[2018-02-08] MEDS: DEXAMETHASONE 4 MG/ML SDV (DECADRON) IV SCH ×4 (06:36→23:24)
[2018-02-08] MEDS: inSUlin ASPART (NovoLOG) 1 UNIT/0.01 ML (CHARGE PER UNIT) SC SCH ×4 (06:36→20:11)
[2018-02-08 08:00] VITALS: BP 137/80
[2018-02-08] MEDS: ENOXAPARIN 40 MG/0.4 ML (LOVENOX) SYR SQ SCH (09:41)
[2018-02-08] MEDS: LEVETIRACETAM 1,000 MG (KEPPRA) TABLET PO SCH ×2 (09:41→20:11)
--- NOTE | 2018-02-08 11:09 | Progress Note-Hospitalist ---
Subjective HPI/CC On Admission Date Seen by Provider: Feb 08, 2018 Time Seen by Provider: 10:45 Pt is a a 62yoCF who presented as a direct admission from Dr Benitez's office. She is very tired and offers very little history so all history is obtained from sister at bedside and Dr Benitez. She reportedly fell on Friday and was brought to [facility] and admitted for pneumonia. CT Chest on 01/24 showed a large cavitating mass concerning for lung cancer with large mediastinal lymphadenopathy. She had some left sided weakness as well. She was discharged home on 01/25 with follow up with Dr Benitez today. She had a CT Head and CT Abdomen and pelvis done today and was found to have large 4x5cm frontal mass with cerebral edema. She was admitted here for radiation oncology evaluation and pulmonology consultation. Her only complaint is that she has a headache. Her sister states that prior to 01/23 they were unaware she was so weak but they did not actively check on her. They had noticed that she has had almost no appetite and has been losing weight over the past few weeks. Her sister believes she has lost 20lbs. Subjective/Events-last exam Patient is awake and alert painfully thin but without complaint. Says she did not sleep well last night because of the [employer]manuel[employer] and whistles. She denies having any pain. Review of Systems Neurological: Weakness, Confusion Objective Exam Vital Signs Vital Signs Date Time Temp Pulse Resp B/P (MAP) Pulse Ox O2 Delivery O2 Flow Rate FiO2 02/08/18 08:00 97.7 64 14 137/80 (99) 91 Room Air 02/05/18 15:20 21 Capillary Refill : Less Than 3 Seconds General Appearance: Chronically ill Neck: Limited Range of Motion Respiratory: Lungs Clear, Normal Breath Sounds, No Accessory Muscle Use, No Respiratory Distress Cardiovascular: Regular Rate, Rhythm, No Gallop, Systolic Murmur Gastrointestinal: No Organomegaly, Non Tender, Soft Rectal: Deferred Back: Normal Inspection Extremity: Normal Inspection, Non Tender, No Calf Tenderness Neurologic/Psychiatric: Alert, Depressed Affect, Disoriented Results/Procedures Lab Patient resulted labs reviewed. Imaging: Reviewed Imaging Films, Reviewed Imaging Report Assessment/Plan Assessment and Plan Assess & Plan/Chief Complaint 1. Metastatic cancer of the lung to the brain-currently receiving radiation treatment 2. History of seizures secondary to number 1-on Decadron and Keppra 3. Confusion most likely secondary to number 1 and medications. Will continue radiation. Clinical Quality Measures DVT/VTE Risk/Contraindication: Risk Factor Score Per Nursin RFS Level Per Nursing on Admit: 4+=Very High SARAH JONES MD Feb 08, 2018 11:09 am
[2018-02-08 15:30] VITALS: BP 134/75
[2018-02-08] MEDS: NS IV 1000 ML 1,000 ML IV SCH (15:48)
[2018-02-08] MEDS: morphine INJ 4 MG/ML 1 ML (VIAL/SYRINGE) IVP PRN (17:37)
[2018-02-09] VITALS: BP 116/58
[2018-02-09] MEDS: inSUlin ASPART (NovoLOG) 1 UNIT/0.01 ML (CHARGE PER UNIT) SC SCH ×4 (05:49→21:35)
[2018-02-09] MEDS: DEXAMETHASONE 4 MG/ML SDV (DECADRON) IV SCH (05:55)
[2018-02-09 08:00] VITALS: BP 128/56
[2018-02-09] MEDS: ENOXAPARIN 40 MG/0.4 ML (LOVENOX) SYR SQ SCH (08:54)
[2018-02-09] MEDS: LEVETIRACETAM 1,000 MG (KEPPRA) TABLET PO SCH ×2 (08:54→21:35)
[2018-02-09] MEDS: NS IV 1000 ML 1,000 ML IV SCH (08:56)
[2018-02-09] MEDS: morphine (ROXINOL) 10 MG/0.5 ML oral conc 0.5 ML PO PRN ×2 (11:36→17:34)
--- NOTE | 2018-02-09 13:59 | Progress Note-Hospitalist ---
Subjective HPI/CC On Admission Date Seen by Provider: Feb 09, 2018 Time Seen by Provider: 09:30 Pt is a a 62yoCF who presented as a direct admission from Dr Benitez's office. She is very tired and offers very little history so all history is obtained from sister at bedside and Dr Benitez. She reportedly fell on Friday and was brought to [facility] and admitted for pneumonia. CT Chest on 01/24 showed a large cavitating mass concerning for lung cancer with large mediastinal lymphadenopathy. She had some left sided weakness as well. She was discharged home on 01/25 with follow up with Dr Benitez today. She had a CT Head and CT Abdomen and pelvis done today and was found to have large 4x5cm frontal mass with cerebral edema. She was admitted here for radiation oncology evaluation and pulmonology consultation. Her only complaint is that she has a headache. Her sister states that prior to 01/23 they were unaware she was so weak but they did not actively check on her. They had noticed that she has had almost no appetite and has been losing weight over the past few weeks. Her sister believes she has lost 20lbs. Subjective/Events-last exam Pt reports doing well. Sitting up in bed eating pizza. Sister at bedside and has questions about diagnosis. Objective Exam Vital Signs Vital Signs Date Time Temp Pulse Resp B/P (MAP) Pulse Ox O2 Delivery O2 Flow Rate FiO2 02/09/18 09:00 92 Room Air 0.00 02/09/18 08:00 98.7 79 14 128/56 (80) 02/08/18 14:47 21 Capillary Refill : Less Than 3 Seconds General Appearance: No Apparent Distress, Cachetic Respiratory: Lungs Clear, No Respiratory Distress Cardiovascular: Regular Rate, Rhythm, No Murmur Gastrointestinal: Normal Bowel Sounds, Non Tender, Soft Neurologic/Psychiatric: Alert, Oriented x3 Results/Procedures Lab Patient resulted labs reviewed. 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
[2018-02-09] MEDS: DEXAMETHASONE 4 MG TAB (DECADRON) PO SCH ×2 (14:03→21:35)
[2018-02-09 15:45] VITALS: BP 107/65
[2018-02-10 00:15] VITALS: BP 115/56
[2018-02-10] MEDS: inSUlin ASPART (NovoLOG) 1 UNIT/0.01 ML (CHARGE PER UNIT) SC SCH ×4 (05:33→21:47)
[2018-02-10] MEDS: DEXAMETHASONE 4 MG TAB (DECADRON) PO SCH ×3 (06:48→21:44)
[2018-02-10 08:00] VITALS: BP 121/69
[2018-02-10] MEDS: ENOXAPARIN 40 MG/0.4 ML (LOVENOX) SYR SQ SCH (09:10)
[2018-02-10] MEDS: LEVETIRACETAM 1,000 MG (KEPPRA) TABLET PO SCH ×2 (09:10→21:44)
--- NOTE | 2018-02-10 10:28 | Progress Note-Hospitalist ---
Subjective HPI/CC On Admission Date Seen by Provider: Feb 10, 2018 Time Seen by Provider: 10:22 Pt is a a 62yoCF who presented as a direct admission from Dr Benitez's office. She is very tired and offers very little history so all history is obtained from sister at bedside and Dr Benitez. She reportedly fell on Friday and was brought to [facility] and admitted for pneumonia. CT Chest on 01/24 showed a large cavitating mass concerning for lung cancer with large mediastinal lymphadenopathy. She had some left sided weakness as well. She was discharged home on 01/25 with follow up with Dr Benitez today. She had a CT Head and CT Abdomen and pelvis done today and was found to have large 4x5cm frontal mass with cerebral edema. She was admitted here for radiation oncology evaluation and pulmonology consultation. Her only complaint is that she has a headache. Her sister states that prior to 01/23 they were unaware she was so weak but they did not actively check on her. They had noticed that she has had almost no appetite and has been losing weight over the past few weeks. Her sister believes she has lost 20lbs. Subjective/Events-last exam Pt reports feeling well. Just back from radiation. No complaints. Objective Exam Vital Signs Vital Signs Date Time Temp Pulse Resp B/P (MAP) Pulse Ox O2 Delivery O2 Flow Rate FiO2 02/10/18 08:00 98.6 63 16 121/69 (86) 93 Room Air 02/09/18 21:00 0.00 02/08/18 14:47 21 Capillary Refill : Less Than 3 Seconds General Appearance: Chronically ill, Cachetic Respiratory: Lungs Clear, No Respiratory Distress Cardiovascular: Regular Rate, Rhythm, No Murmur Neurologic/Psychiatric: Alert, Oriented x3 Results/Procedures Lab Patient resulted labs reviewed. 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
[2018-02-10] MEDS: APAP 325 MG/10.15 ML LIQ (TYLENOL) UDC PO PRN (14:06)
[2018-02-10 16:00] VITALS: BP 125/70
[2018-02-10] MEDS: morphine (ROXINOL) 10 MG/0.5 ML oral conc 0.5 ML PO PRN (21:44)
[2018-02-11] VITALS: BP 101/65
[2018-02-11] MEDS: inSUlin ASPART (NovoLOG) 1 UNIT/0.01 ML (CHARGE PER UNIT) SC SCH ×4 (06:04→22:12)
[2018-02-11] MEDS: DEXAMETHASONE 4 MG TAB (DECADRON) PO SCH ×3 (06:06→22:30)
[2018-02-11 08:00] VITALS: BP 100/54
[2018-02-11] MEDS ORDERED: LEVE10006 PO (08:51)
[2018-02-11] MEDS ORDERED: MORP100S3 PO (08:51)
[2018-02-11] MEDS ORDERED: DEXA2TAB PO (08:51)
[2018-02-11] MEDS: ENOXAPARIN 40 MG/0.4 ML (LOVENOX) SYR SQ SCH (08:58)
[2018-02-11] MEDS: LEVETIRACETAM 1,000 MG (KEPPRA) TABLET PO SCH ×2 (08:58→22:00)
--- NOTE | 2018-02-11 10:02 | Progress Note-Hospitalist ---
Subjective HPI/CC On Admission Date Seen by Provider: Feb 11, 2018 Time Seen by Provider: 09:58 Pt is a a 62yoCF who presented as a direct admission from Dr Benitez's office. She is very tired and offers very little history so all history is obtained from sister at bedside and Dr Benitez. She reportedly fell on Friday and was brought to [facility] and admitted for pneumonia. CT Chest on 01/24 showed a large cavitating mass concerning for lung cancer with large mediastinal lymphadenopathy. She had some left sided weakness as well. She was discharged home on 01/25 with follow up with Dr Benitez today. She had a CT Head and CT Abdomen and pelvis done today and was found to have large 4x5cm frontal mass with cerebral edema. She was admitted here for radiation oncology evaluation and pulmonology consultation. Her only complaint is that she has a headache. Her sister states that prior to 01/23 they were unaware she was so weak but they did not actively check on her. They had noticed that she has had almost no appetite and has been losing weight over the past few weeks. Her sister believes she has lost 20lbs. Subjective/Events-last exam Pt states she's feeling well. No complaints. Ready to DC home tomorrow. Objective Exam Vital Signs Vital Signs Date Time Temp Pulse Resp B/P (MAP) Pulse Ox O2 Delivery O2 Flow Rate FiO2 02/11/18 09:00 93 Room Air 0.00 02/11/18 08:00 97.5 72 18 100/54 (69) 02/08/18 14:47 21 Capillary Refill : Less Than 3 Seconds General Appearance: Chronically ill, Cachetic Respiratory: Lungs Clear, No Respiratory Distress Cardiovascular: Regular Rate, Rhythm, No Murmur Neurologic/Psychiatric: Alert, Oriented x3, Normal Mood/Affect Results/Procedures Lab Patient resulted labs reviewed. 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 Patient and family have elected hospice care after discharge (3) Left-sided weakness Status: Acute Assessment & Plan: Due to mass Continue oral decadron (4) Discharge planning issues Assessment & Plan: Previously lived at home by herself Sisters to help during day Daughter would like to arrange night time help as well Social work consulted, appreciate recs [facility]- will have informational meeting with this hopefully today Clinical Quality Measures DVT/VTE Risk/Contraindication: Risk Factor Score Per Nursin RFS Level Per Nursing on Admit: 4+=Very High MARLEY BURT MD Feb 11, 2018 10:02
[2018-02-11] MEDS: morphine (ROXINOL) 10 MG/0.5 ML oral conc 0.5 ML PO PRN (14:17)
--- NOTE | 2018-02-11 15:03 | Progress Note-Standard ---
Standard Progress Note Progress Notes/Assess & Plan Date Seen by a Provider: Feb 11, 2018 Time Seen by a Provider: 14:56 Progress/Assessment & Plan 62-year-old female admitted with mental status changes and left-sided weakness. Found to have large right frontal lobe mass with significant surrounding edema as well as large right lung cavitating mass. 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 Patient is on dexamethasone 4 mg po every 8 hours and will complete palliative whole brain radiation therapy on 02/12/2018. She is more awake at times but somnolent and difficult to arouse at other times. She is requiring pain medications intermittently for headaches. She is also on Keppra 1 g twice a day because of seizure. She continues to have left hemiplegia which has not improved. Patient 's family including her daughter who has the DURABLE POWER OF SUPERVISOR SPINNING for health care decisions have decided to proceed with best supportive care and not pursue systemic treatment for the metastatic lung cancer. The would like to continue best supportive care with hospice which has been arranged. Patient is to be discharged home with the her sisters being the primary caregivers. Hospice making all the arrangements at home prior to discharge. new client banking services clerk coordinating this. JUNI FONSECA Feb 11, 2018 15:03
[2018-02-11 15:55] VITALS: BP 104/58
[2018-02-11 23:23] VITALS: BP 103/63
[2018-02-12] MEDS: morphine (ROXINOL) 10 MG/0.5 ML oral conc 0.5 ML PO PRN ×2 (03:04→09:36)
[2018-02-12] MEDS: inSUlin ASPART (NovoLOG) 1 UNIT/0.01 ML (CHARGE PER UNIT) SC SCH (06:34)
[2018-02-12] MEDS: DEXAMETHASONE 4 MG TAB (DECADRON) PO SCH (06:34)
[2018-02-12 08:00] VITALS: BP 108/56
[2018-02-12] MEDS: ENOXAPARIN 40 MG/0.4 ML (LOVENOX) SYR SQ SCH (08:56)
[2018-02-12] MEDS: LEVETIRACETAM 1,000 MG (KEPPRA) TABLET PO SCH (08:56)
--- NOTE | 2018-02-12 09:59 | Discharge Summary-Hospitalist ---
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 Patient and family have elected hospice care after discharge (3) Left-sided weakness Status: Acute Assessment & Plan: Due to mass Continue oral decadron (4) Discharge planning issues Assessment & Plan: Previously lived at home by herself Sisters to help during day Daughter would like to arrange night time help as well Social work consulted, appreciate masha Abundio Will hospice selected- will have informational meeting with this hopefully today Discharge Summary Discharge Physical Exam Allergies: Coded Allergies: No Allergy Information Available (Unverified , 01/27/18) Vitals & I&Os Vital Signs Date Time Temp Pulse Resp B/P (MAP) Pulse Ox O2 Delivery O2 Flow Rate FiO2 02/12/18 10:12 85 16 108/96 91 Room Air 02/12/18 10:06 96.6 02/11/18 09:00 0.00 General Appearance: Chronically ill, Cachetic Respiratory: Lungs Clear, No Respiratory Distress Cardiovascular: Regular Rate, Rhythm, No Murmur Neurologic/Psychiatric: Alert, Motor Weakness (left sided upper and lower extremity) Hospital Course Pt was admitted for new onset left side flaccid paralysis after a CT revealed brain tumors consistent with metastatic disease. This cancer was newly diagnosed and she underwent EBUS with Dr Gates for diagnosis of mediastinal lymphadenopathy and brain tumors. Path was consistent ith poorly differentiated adenocarcinoma. Oncology was consulted and best supportive care was recommended. She ultimately had one episode of seizure like activity and was treated with Keppra which controlled further seizures. She was treated with decadron and palliative radiation for her cerebral edema. Radiation was completed on 02/12 and she was discharged home with hospice. Labs (last 24 hrs) Microbiology 01/28/18 Gram Stain - Final, Resulted 01/28/18 Bronchial Culture - Final, Resulted No growth 01/28/18 Fungal Culture 1 - Preliminary, Resulted Culture In Progress Patient resulted labs reviewed. Pending Labs Imaging: Reviewed Imaging Films, Reviewed Imaging Report Discussion & Recommendations Discharge Planning: >30 minutes discharge planning Discharge Home Medications: Active Scripts Active Dexamethasone 2 Mg Tablet 2 Mg PO Q8H Levetiracetam 1,000 Mg Tablet 1,000 Mg PO BID Morphine Sulfate Concentrate 20mg/ml (Morphine Sulfate) 100 Mg/5 Ml Solution 5- 10 Mg PO Q4H PRN Instructions to patient/family Please see electronic discharge instructions given to patient. Clinical Quality Measures DVT/VTE Risk/Contraindication: Risk Factor Score Per Nursin RFS Level Per Nursing on Admit: 4+=Very High Copy Copies To 1: YEVGENIY PADGETT KATELYN M MD Feb 12, 2018 09:59
[2018-02-12 10:12] VITALS: BP 108/96
--- NOTE | 2018-02-13 09:37 | Physician Query Clarification ---
PQ-Intro New Diagnosis Admission/Discharge Admission Date: Jan 27, 2018 at 12:15 Discharge Date: Feb 12, 2018 at 10:15 The medical record reflects the following clinical scenario: History/Risk Factors: Lung Ca w/ brain mets Clinical Findings: Path - lymph nodes station 7,10R, 4R, 4L positive for malignant cells Treatment: palliative radiation therapy and IV dexamethsone for brain mets. Pt decidied not to treat systemically Question: What condition best reflects the above clinical scenario? Please document below. 1. mediastinal lymph node metastasis 2. mediatinal lymphadenopathy 3. Other, with explanation of the clinical findings. 4. Clinically undetermined, no explanation for the clinical findings. PHYSICIAN RESPONSE What condition reflects above: 1 In responding to this query, please exercise your independent professional judgment. The purpose of this communication is to more accurately reflect the complexity of your patients condition. The fact that a question is asked does not imply that any particular answer is desired or expected. Thank you for your timely response to this clarification. Requestors name: Luis Antonio THIS PHYSICIAN QUERY FORM IS A PERMANENT PART OF THE MEDICAL RECORD LUIS ANTONIO MONGE Feb 13, 2018 09:37 MARLEY BURT MD Feb 13, 2018 16:48
== END 2018-02-12 10:15 | disposition hospice, home (50) | DRG 166 ==
LOC: UNDOADMIN 12:15 → ICU 12:15 → UNDOADMIN 01-28 14:52 → 4TH 01-29 18:29
PROVIDERS: ADMIT Family Medicine; ATTEND Family Medicine
PROC: 0BD48ZX Extraction of Right Upper Lobe Bronchus, Via Natural or Artificial Opening Endoscopic, Diagnostic (ICD-10-PCS; 2018-01-28)
PROC: 0BBK8ZX Excision of Right Lung, Via Natural or Artificial Opening Endoscopic, Diagnostic (ICD-10-PCS; 2018-01-28)
PROC: 0B9C8ZX Drainage of Right Upper Lung Lobe, Via Natural or Artificial Opening Endoscopic, Diagnostic (ICD-10-PCS; principal; 2018-01-28 07:24)
DX: C34.31 Malignant neoplasm of lower lobe, right bronchus or lung (principal); C79.31 Secondary malignant neoplasm of brain; G93.6 Cerebral edema; C77.1 Secondary and unspecified malignant neoplasm of intrathoracic lymph nodes; R64 Cachexia; G81.94 Hemiplegia, unspecified affecting left nondominant side; R56.9 Unspecified convulsions; K76.9 Liver disease, unspecified; Z66 Do not resuscitate; J43.9 Emphysema, unspecified; R63.4 Abnormal weight loss; F05 Delirium due to known physiological condition; R51 Headache; E87.6 Hypokalemia
CPT/HCPCS: 36415; 71045; 77290; 77295; 77300; 77334; 77336; 77417; 80048; 80053; 82962; 83735; 84100; 85007; 85025; 85027; 85610; 87015; 87070; 87081; 87101; 87116; 87205; 87206; 88112; 88305; 88312; 88313; 88341; 88342; 88344; 89051; 94640; 94760; 99204